=== PATIENT | female | born 1965 | race Caucasian/White ===

== ENCOUNTER → 2022-06-18 10:14 | Outpatient (BNVA) | payer BC, MEDICAID, SELFPAY | PROVIDERS: PCP Nurse Practitioner Family; Visit Provider Nurse Practitioner Family | DX: Z13.220 Encounter for screening for lipoid disorders (principal); Z87.898 Personal history of other specified conditions; Z86.2 Personal history of diseases of the blood and blood-forming organs and certain disorders involving the immune mechanism | CPT/HCPCS: 80053; 80061; 83036; 85025 ==

== ENCOUNTER → 2022-07-01 09:00 | Outpatient (BNVA) | payer BC, MEDICAID, SELFPAY | PROVIDERS: PCP Nurse Practitioner Family; Visit Provider Nurse Practitioner Women's Health | DX: Z01.419 Encounter for gynecological examination (general) (routine) without abnormal findings (principal) | CPT/HCPCS: 87624 ==

== ENCOUNTER → 2022-08-25 15:07 | Outpatient (BNVA) | payer BC, MEDICAID, SELFPAY | PROVIDERS: PCP Family Medicine; Visit Provider Family Medicine | DX: M79.642 Pain in left hand (principal) | CPT/HCPCS: 73130 ==

== ENCOUNTER → 2022-10-08 10:25 | Outpatient (BNVA) | payer BC, MEDICAID, SELFPAY | PROVIDERS: PCP Family Medicine; Visit Provider Family Medicine | DX: E11.9 Type 2 diabetes mellitus without complications (principal) | CPT/HCPCS: 80053; 83036 ==

== ENCOUNTER → 2024-09-28 10:20 | Outpatient (BNVA) | payer BC, MEDICAID, SELFPAY | PROVIDERS: PCP Family Medicine; Visit Provider Family Medicine | DX: I10 Essential (primary) hypertension (principal); E11.9 Type 2 diabetes mellitus without complications | CPT/HCPCS: 80053; 80061; 83036 ==

== ENCOUNTER 2024-10-02 16:55 | Inpatient (IN) | payer BC, MEDICAID, SELFPAY ==
[2024-10-02] VITALS (9 sets, daily range): BP systolic 150–161; BP diastolic 87–99; PULSE 84–100; RESP 14–35; TEMP 37; O2SAT 96–97
--- NOTE | 2024-10-02 17:11 | P.HP_ITS ---
Providers/Chief Complaint Admitting Physician: Lance Escoto MD Primary Care Provider: Teresita Huitron MD Chief Complaint: chest pain, elavated trop, CSU 102 History of Present Illness Ric Garcia is a 58 year old female with past medical history of uncontrolled type 2 diabetes mellitus, hypertension noncompliant with medications because she wanted to try the natural treatment . She is transferred from outside hospital where she presented overnight because of chest pressure. Chest pressure started at around 10 PM last night associated with heaviness in her left shoulder and nausea. She denies any complaints right now. At the outside hospital she was diagnosed of non-ST elevation VT and was started on a heparin drip, given full dose aspirin. Currently when seen in the CSU patient is laying comfortably in bed. Denies any nausea, vomiting, headache or chest pains. Review of Systems General: Reports: 10 or more systems reviewed and unremarkable except in HPI and below Const: Denies: fever(s), chills, body aches, change in appetite, change in weight, malaise, night sweats, diaphoresis, change in sleep pattern, daytime sleepiness or snoring Eyes: Denies: change in vision, blurry vision, photophobia, eye discomfort or eye discharge ENMT: Denies: throat pain, enlarged tonsils, hoarseness, mouth pain, oral sores, dry mouth, tinnitus, nasal congestion or post nasal drip Card: Denies: chest pain, palpitations, irregular heart rhythm, edema, swelling of feet/ankles, lightheadedness, syncope, pre-syncope, dyspnea on exertion, orthopnea, leg pain with exertion or acrocyanosis Resp: Denies: dyspnea, productive cough, non-productive cough, wheezing, stridor, pain on inspiration, change in phlegm color, hemoptysis or chest congestion GI: Denies: abdominal pain, nausea, vomiting, hematemesis, coffee ground emesis, dysphagia, heartburn, diarrhea, constipation, bloating, GI cramping, ch jaxson in bowel habits, pain on defecation, hematochezia or melena : Denies: flank pain, dysuria, urinary frequency, urinary urgency, urinary hesitancy, nocturia or hematuria Musc: Denies: neck pain, back pain, extremity pain, joint pain, joint swelling, joint redness, joint stiffness or limited range of motion Neuro: Denies: headache(s), numbness in extremities, weakness in extremities, sensory changes, lack of coordination, difficulty walking, frequent falls, dizziness, vertigo, confusion, Slurred speech present, difficulty communicating thoughts or seizure-like activity Psych: Denies: anxiety, depression, mood swings, panic attacks, hopelessness or irritability Endo: Denies: polyuria, polydipsia, tired all the time, cold intolerance, excessive sweating, flushing or heat intolerance Eduardo/Lymph: Denies: easy bruising or easy bleeding All/Imm: Denies: tongue swelling, facial swelling or acute wheezing Medications/Allergies Home Medications ?Medication ?Instructions ?Recorded ?Confirmed ?Last Taken ?Type blood sugar diagnostic (Blood #50 ea 09/28/24 09/28/24 Unknown Rx Glucose Test strips) blood-glucose meter (Blood Glucose #1 ea 09/28/2408/23 Unknown Rx Monitoring kit) lancets 33 gauge #100 ea 09/28/24 09/28/24 Un known Rx losartan 25 mg tablet 25 mg PO DAILY 30 days #30 t abs 09/28/24 09/28/24 Unknown Rx metformin 500 mg tablet 500 mg PO DAILY 30 days #30 tabs 09/28/24 09/28/24 Unknown Rx Allergies Allergy/AdvReac Type Severity Reaction Status Date / Time No Known Allergies Allergy Verified 09/28/24 07:53 PFSH Acute PFSH: Medical History (Updated 10/02/24 @ 17:13 by Lance Escoto MD) Non compliance with medical treatment Diabetes Hypertension Surgical History Status post cervical polyp removal History of bilateral tubal ligation Family History Other Medical history unknown Social History Smoking and tobacco/nicotine status: never used tobacco/nicotine Female Reproductive History: Para: 1 Spontaneous abortions: No Date of menopause: 03/29/20 Vitals/I&O/Wt Weight last 48 hrs Weight 46.04 kg Physical Exam Narrative: General: No acute distress, AO x3 HEENT: PERRLA, pupils bilaterally equal and reactive Chest: Normal vesicular breath sounds, no added sounds, equal good air entry bilaterally CVS: S1-S2 regular, no murmurs, no tachycardia, no gallops, no rubs Abdomen: Soft, nontender, no organomegaly, bowel sounds present Neuro: No focal deficits, no facial deformity, AO x3, power 5/5 in all limbs A&P Assessment and plan (1) Non-ST elevation VT (NSTEMI): Denies any active chest pain. Started on heparin drip as an outpatient. Stop heparin drip as it is not as per weight-based protocol. Check troponin cycle, echocardiogram. Appreciate A1c and lipid panel within last 1 week. Aspirin 81 mg daily, atorvastatin 40 mg nightly. Depending on the vitals will plan to start low-dose beta-rocio. N.p.o. after midnight. Lexiscan stress test in AM. If patient develops chest pain we will plan for consulting cardiology for urgent angiogram. Full dose Lovenox 1 mg/kg body weight every 12 hourly as per creatinine clearance. (2) Uncontrolled type 2 diabetes mellitus: Recent A1c of 13.2. Discussed in detail with the patient that she has uncontrolled type 2 diabetes mellitus which puts her at a higher risk of a stroke, VT, severe infections, peripheral artery disease which puts her at a risk of losing her limbs. Discussed given her uncontrolled A1c it will be most important to control her blood sugars at the earliest. Discussed that she should be on an insulin at least for a short while to control her A1c and then may be transition to oral hypoglycemics. For now patient is agreeable. Insulin sliding scale at low-dose protocol. Depending on requirement in next 24 hours we will plan to add Lantus. (3) Hypertension: Goal blood pressure less than 140/90 mmHg. Plan to start on low-dose beta-rocio. Add CAMACHO/ARB within next 24 hours depending on blood pressures. Qualifiers: Hypertension type: primary hypertension Qualified Code(s): I10 - Essential (primary) hypertension (4) Non compliance with medical treatment: Plan Full code Cardiac carb consistent diet, n.p.o. after midnight. Protonix OPD prophylaxis Full dose Lovenox will be sufficient for DVT prophy. PDMP PDMP Reviewed: Not Reviewed Attestations Medical Necessity Statement*: Admission for more than 2 midnights for management of non-ST elevation VT, uncontrolled type 2 diabetes mellitus Diagnoses Non-ST elevation VT (NSTEMI) I21.4 Uncontrolled type 2 diabetes mellitus Primary hypertension I10 Hypertension type: primary hypertension Non compliance with medical treatment Z91.199
--- NOTE | 2024-10-02 17:11 | ECG_ITS ---
[facility] Test Date: 2024-10-02 Pat Name: Ric Garcia Department: Room: 102 Gender: Female Vehicle Sales Professional: : 1965 Requested By: Lance Escoto Order Number: [id number] Reading MD: KORI TERESA Measurements Intervals [place] Rate: 81 P: 0 OK: 0 QRS: 56 QRSD: 86 T: 122 QT: 407 QTc: 473 Interpretive Statements SINUS RHYTHM NONSPECIFIC ST & T-WAVE ABNORMALITY No previous ECG available for comparison Electronically Signed On 10-02-2024 21:43:22 CDT by KORI TERESA [email or web address]
[2024-10-02 17:33] LABS: Basophils # 0.1 10^3/uL (0.0-0.1); Basophils % 0.5 %; Eosinophils # 0.1 10^3/uL (0.0-0.8); Eosinophils % 0.6 %; Hematocrit 40.1 % (36-47); Mean Corpuscular HGB Conc 34.9 g/dL (30-55); Mean Corpuscular Hemoglobin 26.3 pg (27-33); Mean Corpuscular Volume 75.2 fl (85-98); Mean Platelet Volume 10.9 fL (7.4-10.4); Monocytes # 0.4 10^3/uL (0.2-0.9); Monocytes % 4.2 %; Neutrophils # 7.48 10^3/uL (1.8-7.7); Neutrophils % 74.2 %; Nucleated Red Blood Cells % 0 %; Platelet Count 310 10^3/cmm (157-399); Red Blood Count 5.33 10^6/uL (3.85-5.65); Red Cell Distribution Width 11.6 % (12.1-15.1); White Blood Count 10.08 10^3/uL (3.29-11.43)
[2024-10-02 17:35] LABS: Glucose Point of Care 216 mg/dL (70-110)
[2024-10-02] MEDS: insulin lispro 100 unit/1 mL SUBCUT ×2 (17:47→20:58)
[2024-10-02 17:48] LABS: Partial Thromboplastin Time 38.4 SECONDS (23.9-36.7)
[2024-10-02] MEDS: pantoprazole 40 mg SDV IVP (17:48)
[2024-10-02] MEDS: sodium chloride 0.9% 1,000 ML 30 ML IV (17:48)
[2024-10-02 17:54] LABS: Lactic Sepsis W/Reflex 0.9 mmol/L (0.5-2.2)
[2024-10-02 17:58] LABS: Troponin(5th) Baseline 521 ng/L (0-10)
[2024-10-02 18:10] LABS: Procalcitonin 0.03 ng/mL (0-0.5); Thyroid Stimulating Hormone 1.12 uIU/mL (0.27-4.20); Vitamin B12 1737 pg/mL (232-1245)
[2024-10-02 18:21] LABS: Alanine Aminotransferase 18 U/L (0-33); Albumin Level 4.3 g/dL (3.5-5.2); Alkaline Phosphatase 147 U/L (35-105); Anion Gap 16.9 (5-19); Aspartate Amino Transferase 39 U/L (0-32); Blood Urea Nitrogen 9 mg/dL (6-20); Calcium 9.1 mg/dL (8.5-10.5); Carbon Dioxide 21 mmol/L (22-29); Chloride 99 mmol/L (98-107); Globulin 2.4 g/dL (1.3-4.6); Glomerular Filtration Rate 229.3 mL/min (90-130); Glucose 236 mg/dL (65-115); Iron 55 ug/dL (37-145); Osmolality Calculated 282 mOsm/kg (285-295); Percent Saturation 18.7 % (20-50); Potassium 3.9 mmol/L (3.5-5.1); Sodium 133 mmol/L (136-145); Total Bilirubin 0.5 mg/dL (0.15-1.2); Total Iron Binding Capacity 293 mcg/dl; Total Protein 6.7 g/dL (6.6-8.7); Unsaturated Iron Binding 238 ug/dL (112-347)
[2024-10-02] MEDS: enoxaparin 60 mg/0.6 mL Syringe 50 MG SUBCUT (19:24)
[2024-10-02 19:53] LABS: Troponin 5 2HR 554.7 ng/L (0-10); Troponin 5 2HR Delta 33.7 ABS# (0-10)
[2024-10-02 20:44] LABS: Glucose Point of Care 255 mg/dL (70-110)
--- NOTE | 2024-10-02 23:01 | ECG_ITS ---
[facility] Date: 2024-10-03 Pat Name: Ric Garcia Department: Room: [facility] Gender: Female Lead Javascript Engineer: : 1965 Requested By: Lance Escoto Order Number: [id number] Reading MD: Peter Hightower M.D. Measurements Intervals [place] Rate: 89 P: 56 HI: 144 QRS: 57 QRSD: 85 T: 132 QT: 386 QTc: 472 Interpretive Statements SINUS RHYTHM POSSIBLE LEFT ATRIAL ENLARGEMENT [-0.1mV P-WAVE IN V1/V2] NONSPECIFIC T-WAVE ABNORMALITY Compared to ECG 10/02/2024 17:11:09 No significant changes Electronically Signed On 10-08-2024 13:35:30 CDT by Peter Hightower M.D. [email or web address]
[2024-10-02 23:31] LABS: Troponin 5 6HR 846.4 ng/L (0-10); Troponin 5 6HR Delta 325.4 ng/L (0-12)
[2024-10-03] VITALS (10 sets, daily range): BP systolic 113–150; BP diastolic 67–89; PULSE 75–105; RESP 11–21; TEMP 36.7; O2SAT 95–98
--- NOTE | 2024-10-03 02:44 | PC.NURSE ---
Patient refusing medications based on advice from her . Patients wants patient to receive natural treatments instead of medications, due to his concerns for possible side effects. stated he had done lots of research on those medications and that they were no good and many people had problems after taking them . Educated patient and on medications, on patients current health problems, and need for medication compliance to help manage them. still adamant that we only give medications that are related to patients heart, not the other things like blood pressure . Patient refused Losartan, Metoprolol, and Atorvastatin. Lovenox and Insulin given as ordered.
[2024-10-03 04:23] LABS: Basophils % 0.4 %; Eosinophils # 0.1 10^3/uL (0.0-0.8); Eosinophils % 1.1 %; Hematocrit 40.7 % (36-47); Lymphocytes # 1.8 10^3/uL (0.8-4.8); Lymphocytes % 18.1 %; Mean Corpuscular HGB Conc 34.2 g/dL (30-55); Mean Corpuscular Hemoglobin 25.9 pg (27-33); Mean Corpuscular Volume 75.8 fl (85-98); Mean Platelet Volume 11.2 fL (7.4-10.4); Monocytes # 0.5 10^3/uL (0.2-0.9); Monocytes % 5.2 %; Nucleated Red Blood Cells % 0 %; Platelet Count 333 10^3/cmm (157-399); Red Blood Count 5.37 10^6/uL (3.85-5.65); Red Cell Distribution Width 11.7 % (12.1-15.1)
[2024-10-03 04:45] LABS: Alanine Aminotransferase 16 U/L (0-33); Albumin Level 3.9 g/dL (3.5-5.2); Alkaline Phosphatase 133 U/L (35-105); Anion Gap 15.9 (5-19); Aspartate Amino Transferase 32 U/L (0-32); Blood Urea Nitrogen 14 mg/dL (6-20); Calcium 9.1 mg/dL (8.5-10.5); Carbon Dioxide 23 mmol/L (22-29); Chloride 100 mmol/L (98-107); Globulin 3.1 g/dL (1.3-4.6); Glomerular Filtration Rate 164.5 mL/min (90-130); Glucose 294 mg/dL (65-115); Magnesium 1.9 mg/dL (1.7-2.3); Osmolality Calculated 291 mOsm/kg (285-295); Phosphorus 3.2 mg/dL (2.5-4.5); Potassium 3.9 mmol/L (3.5-5.1); Sodium 135 mmol/L (136-145); Total Bilirubin 0.4 mg/dL (0.15-1.2)
[2024-10-03 04:46] LABS: Procalcitonin 0.02 ng/mL (0-0.5)
[2024-10-03 06:05] LABS: Folate Level 17.7 ng/mL (4.8-37.3)
[2024-10-03 06:23] LABS: Glucose Point of Care 238 mg/dL (70-110)
[2024-10-03] MEDS: insulin lispro 100 unit/1 mL SUBCUT ×3 (08:25→22:03)
[2024-10-03] MEDS: losartan 50 mg Tablet 25 MG PO (08:26)
[2024-10-03] MEDS: aspirin 81 mg EC Tablet PO (08:26)
[2024-10-03] MEDS: docusate sodium 100 mg Capsule PO ×2 (08:26→17:19)
[2024-10-03] MEDS: metoprolol tartrate 25 mg Tablet PO (08:27)
--- NOTE | 2024-10-03 09:39 | XACV_ITS ---
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 * Left Main has no disease. * Left Anterior Descending has no disease. * Mid Circumflex: severe 90% stenosis, THOMAS: 3 flow. * 1st Diagonal: severe 90% stenosis, THOMAS: 3 flow. * First Obtuse Marginal Branch Segment: luminal irregularities 20% stenosis, THMOAS: 3 flow. * Coronary angiography shows right dominance. PCI Status: Urgent Interventional Findings * Mid Circumflex: 90% stenosis treated with a AB MINI TREK 2.00X15 RX BALLOON, ANNA Burton TRAV 2.75X18 ALEJANDRA, and MDAlireza GUEVARA EUPHORA RX 3.42Z78HX BALLOON. 0% residual stenosis, THOMAS: 3 flow. * 1st Diagonal: 90% stenosis treated with a AB MINI TREK 2.00X12 RX BALLOON, ANNA Burton TRAV 2.0X15 ALEJANDRA, and MDAlireza GUEVARA EUPHORA RX 2.85A05EY BALLOON. 0% residual stenosis, THOMAS: 3 flow. * First Obtuse Marginal Branch Segment: 20% stenosis treated with a AB TREK 3.00X08 RX BALLOON. 0% residual stenosis, THOMAS: 3 flow. Conclusions 1. Mid Circumflex was treated with a Balloon, Drug Eluting Stent, and Balloon. 2. 1st Diagonal was treated with a Balloon, Drug Eluting Stent, and Balloon. 3. First Obtuse Marginal Branch Segment was treated with a Balloon. 4. There is severe coronary artery disease with one vessel disease. Recommendations * 1-Return to inpatient for close monitoring and routine cath care 2-Risk factor modification for secondary prevention 3-Statin and aspirin 81 mg life-long, if tolerated 4-Patient was pre-loaded with 600 mg of Plavix, continue Plavix 75mg p.o. daily for at least one year. We will assess at the end of one year again to continue if further or not 5-Continue optimal medical management 6-Follow up with Dr. Zee in four weeks and your primary care in 10 days. Diagnostic RX Recommendation: PCI w/o planned CABG Pressures Phase:Rest AO : 142 / 92 ( 114 ) @ 12:13:00 PM 106 / 80 ( 93 ) @ 12:16:00 PM 105 / 79 ( 93 ) @ 12:27:00 PM 129 / 87 ( 102 ) @ 12:38:00 PM 106 / 69 ( 86 ) @ 12:59:00 PM 115 / 73 ( 92 ) @ 1:08:00 PM 82 / 54 ( 66 ) @ 1:16:00 PM Clinical Evaluation EBL: 5mL-10mL Procedural Details Procedure Consent Obtained. Pre-Procedure Time Out. Identified patient by full name and date of as verbalized by the patient/guarantor. Does the consent match the physician's order: Yes. Accurate & Complete Informed Consent: Yes. Inpatient/Outpatient History & Physical on Chart: Yes. If H&P is completed, is and addenduem needed: No. Visualize and Verify Site with Patient/Guarantor: N/A. Relevant Radiology Images available: Yes. The risks, benefits, and alternatives of sedation and/or procedure were discussed by physician. The patient agrees to continue. Procedure started. [facility] Clinical Fraility Score: 3: Managing Well. Director Federal Indications: ACS > 24 hours/NSTEMI. Chest Pain Symptom Assessment: Typical Angina Symptoms. Cardiovascular Instability: No. Correct patient, site and procedure confirmed by cath team. Current diagnosis: NSTEMI. PERRLA. Strong, equal hand bale stacker bilaterally. Lungs clear x 5 lobes. IV Site on Arrival: 18 gauge in the right anticubital. IV Site on Arrival: 18 gauge in the left anticubital. IV Fluids: 0.9% NaCl at KVO. 400 mL infused prior to medical laboratory technical officer. Pre Procedural Pulses: bilateral radial was 3+. Oxygen started at 2liters/min via nasal canula. right groin was prepped with chloroprep then draped in the usual sterile fashion. right radial was prepped with chloroprep then draped in the usual sterile fashion. Physician notified. Baseline sample Acquired. HR: 81 BPM. Patient's family in the medical laboratory technical officer waiting room. Dr. Zee will update at the completion of the procedure. Equipment: 6F - Radial. Cardiac Cath Pack. ACIST Manifold Kit Model BT 2000. Heparinized Saline (2 units/mL), 1000 mL bag. Physician arrived. Physician scrubbed in. Immediate Pre-Procedure Time Out. Correct Patient: Yes; Correct Procedure: Yes; Correct Site: Yes; Correct Patient Position: Yes; Correct Supplies: Yes; Dried Flammable Prep: Yes; Blood Products Available: Yes;. Lidocaine 1% infiltrated to the right radial. Arterial access obtained. A 5 czech TIG catheter in over the exchange J wire. Multiple views taken of left coronary artery. Catheter redirected to the RCA. Unable to cannulate with TIG catheter. Catheter removed over the exchange J wire. A 5 czech 3DRC catheter in over the exchange J wire. Catheter removed over the exchangeJ wire. A 5 czech TIG catheter in over the exchange J wire. Cine of the RCA performed. Catheter removed over the exchange J wire. A 5 czech JR4 catheter in over the exchange J wire. Multiple views taken of right coronary artery. Catheter removed over the exchange J wire. ACT drawn. Results 275 seconds. Therapeutic limits - pre-heparin administration 90-150 seconds and monitoring heparin during a vascular procedure >250 seconds. 6 czech XB 3 guide catheter was inserted over the exchange J wire. Runthrough guidewire was advanced through the guide catheter to lesion in the mid Circ. Diane Brown RN, in to scrub for RT Jeanette(R). Inflation number : 1 A AB MINI TREK 2.00X15 RX BALLOON was prepped and advanced across the Mid CX , then inflated to 14 SHEEBA for 0:12 seconds. Balloon out. Inflation Number : 2 A MDT R TRAV 2.75X18 ALEJANDRA -Lot Number# [id number] was prepped and advanced across the Mid CX. The stent was deployed at 12 SHEEBA for 0:20 seconds. Exp. . Stent balloon out over wire. Inflation number : 3 A MDT NC EUPHORA RX 3.41L88DM BALLOON was prepped and advanced across the Mid CX , then inflated to 12 SHEEBA for 0:22 seconds. Inflation number: 4 The MDT NC EUPHORA RX 3.76O54GM BALLOON was reinflated across the Mid CX, to 14 SHEEBA for 0:24 seconds. Balloon out. Results checked. Runthrough guidewire redirected to the OM. Inflation number : 1 A AB TREK 3.00X08 RX BALLOON was prepped and advanced across the 1st Ob Mitra , then inflated to 4 SHEEBA for 0:18 seconds. Inflation number: 2 The AB TREK 3.00X08 RX BALLOON was reinflated across the 1st Ob Mitra, to 6 SHEEBA for 0:13 seconds. Inflation number: 3 The AB TREK 3.00X08 RX BALLOON was reinflated across the 1st Ob Mitra, to 6 SHEEBA for 0:13 seconds. Inflation number: 4 The AB TREK 3.00X08 RX BALLOON was reinflated across the 1st Ob Mitra, to 4 SHEEBA for 0:11 seconds. Balloon out. Results checked. Runthrough guidewire redirected to the Diagonal. Inflation number : 1 A AB MINI TREK 2.00X12 RX BALLOON was prepped and advanced across the 1st Diag , then inflated to 12 SHEEBA for 0:17 seconds. Inflation number: 2 The AB MINI TREK 2.00X12 RX BALLOON was reinflated across the 1st Diag, to 14 SHEEBA for 0:21 seconds. Inflation number: 3 The AB MINI TREK 2.00X12 RX BALLOON was reinflated across the 1st Diag, to 12 SHEEBA for 0:12 seconds. Results checked. Balloon out. Inflation Number : 4 A MDT R TRAV 2.0X15 ALEJANDRA -Lot Number# [id number] was prepped and advanced across the 1st Diag. The stent was deployed at 14 SHEEBA for 0:27 seconds.Exp. . Stent balloon out over wire. Inflation number : 5 A MDT NC EUPHORA RX 2.29L87OI BALLOON was prepped and advanced across the 1st Diag , then inflated to 12 SHEEBA for 0:20 seconds. Inflation number: 6 The MDT NC EUPHORA RX 2.30J33JG BALLOON was reinflated across the 1st Diag, to 12 SHEEBA for 0:16 seconds. Inflation number: 7 The MDT NC EUPHORA RX 2.21K31SA BALLOON was reinflated across the 1st Diag, to 14 SHEEBA for 0:16 seconds. Balloon out. Results checked. Wire out. ACT drawn. Results 400 seconds. Therapeutic limits - pre-heparin administration 90-150 seconds and monitoring heparin during a vascular procedure >250 seconds. Guide catheter out over the exchange J wire. Results checked. Physician scrubbed out. A TR Band was successful obtaining hemostatsis at the Right Radial artery insertion site. Post Procedure: Pulses reassessed and unchanged. PERRLA. Strong, equal hand bale stacker bilaterally. No VTE prophylaxis required. Medication's Wasted: Lidocaine 1% = 18 mL. Medication's Wasted: Nitro = 49.8 mg. Medication's Wasted: Heparin = 4000 units mg. The patients spouse left the hospital and is not available for an update. Medication's Wasted: Other = Fentanyl 50 mcg. Total IV fluids: 120 mL. PCI Indication: CAD (without ischemic symptoms). Post-op diagnosis: ALEJANDRA x 1 to the Mid CX, POBA of the 1st OM, ALEJANDRA x 1 to the Diagonal. Complications: none. Estimated blood loss: 5mL-10mL. Responsiveness - Normal response to verbal stimuli; alert and oriented, PERRLA. Airway - Unaffected, no intervention required; spontaneous ventilation. Circulation: W/N/L, pulses unchanged. Nausea/Vomiting: No. Procedure completed. Patient transferred by bed to CPRU. Vital chart was stopped. Access Site Site: Right Radial artery Sheath Size: 6 Fr Hemostasis Method: TR Band Hemostasis Success: Successful Procedure Medications Start: 11:05 AM Stop: 11:05 AM Medication: Versed Amount: 1 mg Route: I.V. Start: 11:05 AM Stop: 11:05 AM Medication: Fentanyl Amount: 50 mcg Route: I.V. Start: 11:12 AM Stop: 11:12 AM Medication: Nitrogylcerin Amount: 200 mcg Route: I.A. Start: 11:14 AM Stop: 11:14 AM Medication: Heparin Amount: 5000 units Route: I.V. Start: 11:42 AM Stop: 11:42 AM Medication: Heparin Amount: 2000 units Route: I.V. Start: 12:08 PM Stop: 12:08 PM Medication: Versed Amount: 1 mg Route: I.V. Start: 12:15 PM Stop: 12:15 PM Medication: Nitrogylcerin Amount: 200 mcg Route: I.C. Start: 12:25 PM Stop: 12:25 PM Medication: Plavix Amount: 600 mg Route: P.O. I, the attending physician, have reviewed and verified all procedure medications. Yes, all medications given per verbal order History/Risk Factors Hypertension: Yes Dyslipidemia: No Peripheral Arterial Disease (PAD): No Myocardial Infarction ([place]): No Obesity: No Renal Disease: No Tobacco Use: Never Prior Interventions PCI: No CABG: No Valve Surgery: No Report Signatures Interventional Workflow Finalized by Alex Zee MD on 10/18/2024 09:21 PM Diagnostic Workflow Finalized by Alex Zee MD on 10/18/2024 09:21 PM
[2024-10-03] MEDS: sodium chloride 0.9% 1,000 ML 50 ML IV (10:33)
[2024-10-03] MEDS: diphenhydrAMINE 50 mg Capsule PO (10:33)
--- NOTE | 2024-10-03 10:45 | P.CONIM_ITS ---
<Statement entered by Alex Zee MD - 10/04/24 20:30> Patient was evaluated and cared for in conjunction with an advanced practice practitioner. I personally examined the patient and reviewed the chart and all pertinent data including imaging, telemetry, and laboratory results. I discussed the patient in detail with the advanced practice practitioner. Please see their note for complete H&P testing result and agreed upon plan of care for the patient. 58-year-old female presented with chest pain ruled in for non-ST elevation [place] Currently stable GENERAL: Patient is alert, awake and oriented x3. HEART: Regular S1 and S2. No murmur, rub or gallop. LUNGS: Clear to auscultate bilaterally. CENTRAL NERVOUS SYSTEM: Grossly nonfocal. EXTREMITIES: Lower extremities with out edema bilaterally. Assessment and plan Non-ST ovation [place] Hypertension Hyperlipidemia Continue aspirin and statin beta-rocio and heparin Proceed with left heart cath Providers/Reason For Consult 2 Consulting Physician/Specialty*: Alex Zee MD Reason for Consult*: Chest pain, NSTEMI Requesting Physician: Dr. Escoto Attending Physician: José Lee Primary Care Provider: Teresita Huitron MD History of Present Illness History of Present Illness Ric Garcia is a 58 year old female with a past medical history of uncontrolled type 2 diabetes, hypertension, was transferred from another hospital due to chest pressure. Apparently the patient had chest pressure that started around 10 PM a couple days ago. This was associated with left shoulder pain and nausea. She denies any chest pain at this time. She does not take medication because she states she would rather try a natural treatment. She was started on heparin drip and given full dose aspirin. Her initial troponin was greater than 500. Trop was [phone]. EKG showed sinus rhythm with nonspecific ST and T wave abnormalities. VSS. She just had an echo performed. She is currently taking Metoprolol tartrate 25 BID, atorvastatin, losartan, and aspirin. She has received 2 doses of Lovenox. Review of Systems 2 Narrative: Consitutional: denies fever, chills, body aches, or changes in appetite, denies abnormal weight loss Eyes: Denies changes in vision Card: Denies chest pain, palpitations, irregular heart rhythm, edema, syncope, shortness of breath, orthopnea, leg pain with exertion Resp: Denies shortness of breath, denies hemoptysis, denies cough GI: denies abdominal pain, denies nausea or voimting, denies blood in stool : denies blood in urine, denies dysuria Musc: Denies extremity pain, denies limited range of motion or recent injury Skin: Denies rash, lesions, or wounds, denies changes to skin color Neuro: Denies nubmness in extremities, h/a, s/s of stroke Medications/Allergies Home Medications ?Medication ?Instructions ?Recorded ?Confirmed ?Last Taken ?Type blood sugar diagnostic (Blood #50 ea 09/28/24 10/02/24 Unknown Rx Glucose Test strips) blood-glucose meter (Blood Glucose #1 ea 09/28/2412/21 Unknown Rx Monitoring kit) lancets 33 gauge #100 ea 09/28/24 10/02/24 Un known Rx losartan 25 mg tablet 25 mg PO DAILY 30 days #30 t abs 09/28/24 10/02/24 10/01/24 Rx 0800 metformin 500 mg tablet 500 mg PO DAILY 30 days #30 tabs 09/28/24 10/02/24 10/01/24 08:00 Rx Allergies Allergy/AdvReac Type Severity Reaction Status Date / Time No Known Allergies Allergy Verified 09/28/24 07:53 Current Medications Generic Name Dose Route Start Last Admin Trade Name Yvanq PRN Reason Stop Dose Admin Aspirin 81 mg 10/03/24 09:00 10/03/24 08:26 Aspirin 81 Mg Ec Tablet PO 81 mg DAILY KYARA Administration Atorvastatin Calcium 40 mg 10/02/24 21:00 10/02/24 22:11 Atorvastatin 40 Mg Tablet PO Not Given BEDTIME KYARA Docusate Sodium 100 mg 10/02/24 18:00 10/03/24 08:26 Docusate Sodium 100 Mg Capsule PO 100 mg BID KYARA Administration Sodium Chloride 1,000 mls @ 30 mls/hr 10/02/24 17:30 10/03/24 10:32 Sodium Chloride 0.9% IV 0 mls/hr .Q24H KYARA Infusion Sodium Chloride 1,000 mls @ 50 mls/hr 10/03/24 10:01 10/03/24 10:33 Sodium Chloride 0.9% IV 10/04/24 06:00 50 mls/hr .Q20H ONE Administration Insulin Human Lispro 0 unit 10/02/24 18:00 10/03/24 08:25 Insulin Lispro 100 Unit/1 Ml SUBCUT 6 unit WM&BEDTIME KYARA Administration Protocol Losartan Potassium 25 mg 10/02/24 18:25 10/03/24 08:26 Losartan 50 Mg Tablet PO 25 mg DAILY KYARA Administration Metoprolol Tartrate 25 mg 10/02/24 21:00 10/03/24 08:27 Metoprolol Tartrate 25 Mg Tablet PO 25 mg BID@0900,2100 KYARA Administration Pantoprazole Sodium 40 mg 10/02/24 17:00 10/02/24 17:48 Pantoprazole 40 Mg Sdv IVP 40 mg Q24H KYARA Administration PFSH Acute 2 PFSH: Medical History Non compliance with medical treatment Diabetes Hypertension Surgical History Status post cervical polyp removal History of bilateral tubal ligation Family History Other Medical history unknown Social History Smoking and tobacco/nicotine status: never used tobacco/nicotine Female Reproductive History: Para: 1 Spontaneous abortions: No Date of menopause: 03/29/20 Vitals/I&O/Wt Last Vital Signs Temp 98.0 F 10/03/24 07:42 Pulse 88 10/03/24 07:42 Resp 21 H 10/03/24 07:42 BP 135/89 10/03/24 07:42 Pulse Ox 97 10/03/24 07:42 O2 Del Method Room Air 10/03/24 07:42 10/02/24 10/03/24 10/03/24 22:59 06:59 14:59 Intake Total 120 / 120 502 / 502 Balance 120 / 120 502 / 502 Weight last 48 hrs Weight 101 lb 4 oz Weight 101 lb 8 oz Weight 101 lb 8 oz Physical Exam 2 Narrative: General: No apparent distress, healthy appearing, well nourished HENMT: normoceophalic Eye: PERRL Muskuloskeletal: Full ROM Respiratory: Normal respiratory effort, clear to auscultation bilaterally throughout all lung carrera, no use of accessory muscles Cardio: No JVD, regular rate, regular rhythm, S1 S2 normal, no murmurs, peripheral pulses 2+ radial palpated bilaterally GI: Normal to inspection, nondistended Extremities: Full ROM, normal, normal capillary refill, no cyanosis or edema Neuro: Alert and oriented x4, no focal motor deficits Psych: Affect normal, denies suicidal ideation, mental status grossly normal Skin: No rashes or lesions noted, no wounds Data 10/03/24 03:44 10/03/24 03:44 Micro: Microbiology 10/02/24 19:21 Blood Culture - Preliminary Blood SPECIMEN COLLECTED 10/02/24 19:18 Blood Culture - Preliminary Blood SPECIMEN COLLECTED A&P Assessment and plan (1) Non-ST elevation [place] (NSTEMI): (2) Hypertension: Qualifiers: Hypertension type: primary hypertension Qualified Code(s): I10 - Essential (primary) hypertension (3) Diabetes: Qualifiers: Diabetes mellitus type: type 2 Diabetes mellitus moth exterminator insulin use: without moth exterminator use Diabetes mellitus complication status: without complication Qualified Code(s): E11.9 - Type 2 diabetes mellitus without complications (4) Uncontrolled type 2 diabetes mellitus: Plan At this time, patient has NSTEMI. She is not having chest pain at this time. Patient most likely has underlying coronary disease given chest pain, elevated trop, and uncontrolled diabetes with hypertension history. We recommend proceeding with [facility] possible PCI. We have discussed this with the patient and is present. She agrees to proceed. Will plan on performing her procedure today around 1100. Recommend continue aspirin, statin, and beta rocio. Thank you, Dr. Lea, for allowing us to care for this very pleasant 58 year old female. PDMP PDMP Reviewed: Not Reviewed Coding Level of Care Code Acute Code for [facility] Fwd Diagnoses Non-ST elevation [place] (NSTEMI) I21.4 Primary hypertension I10 Hypertension type: primary hypertension Type 2 diabetes mellitus without complication, without long-term current use of insulin E11.9 Diabetes mellitus type: type 2 Diabetes mellitus moth exterminator insulin use: without skilled nursing use Diabetes mellitus complication status: without complication Uncontrolled type 2 diabetes mellitus
--- NOTE | 2024-10-03 10:48 | PC.NURSE ---
Patient left for roving tester laboratory at 1045.
--- NOTE | 2024-10-03 10:56 | W.PM.OPSUD ---
Surgery/Procedure H&P Update DATE OF PROCEDURE: October 03, 2024 DATE H&P PERFORMED: 10/03/24 H&P UPDATE INFORMATION: I have reviewed H&P completed within last 30 days, I have examined patient prior to procedure and No changes to prior documentation PREOP DIAGNOSIS: Non-STEMI PLANNED PROCEDURE: Operation Date: 10/03/24 11:30 Proposed Procedures p Cardiac Catheterization(Left) - Alex Zee MD PATIENT REASSESSED PRIOR TO SEDATION, WITH NO CHANGE NOTED: Yes PHYSICAL EXAM: alert, oriented x 3, clear to auscultation bilaterally, regular rate & rhythm and operative site marked AIRWAY EVAL/ANESTHESIA PLAN: ASA II, Risks, benefits & alternatives of sedation and/or procedure discussed and Patient agrees to continue as planned ADDITIONAL INFORMATION: Patient has been explained all risk-benefit and alternative for the procedure. Patient understand 2% risk of stroke major bleed, patient understands 5% risk of minor bleeding oozing infection hematoma contrast induced nephropathy urgent emergent vascular or bypass surgery. Patient agreed and would like to proceed with it.
--- NOTE | 2024-10-03 12:27 | P.PCN_ITS ---
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, it has luminal irregularities without significant stenosis Intervention: Drug-eluting stent to mid circumflex and drug-eluting stent to diagonal 1 with excellent angiographic result and THOMAS-3 flow, both lesion with pre and postdilated with balloon Successful balloon angioplasty of mid and ostial obtuse marginal 1 with excellent angiographic result 70% lesion were reduced to 20% Complication none Plan Continue aspirin and statin and clopidogrel patient has been loaded with 60 mg of clopidogrel TR band in place, TR band will be off as per protocol Echocardiogram pending Add beta-rocio over next 24 hours IV fluid 100 mL/h for next 10 hours Coding Level of Care Code Acute Code for [facility]
--- NOTE | 2024-10-03 13:40 | PC.NURSE ---
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
[2024-10-03] MEDS: sodium chloride 0.9% 1,000 ML 100 ML IV (13:46)
[2024-10-03 16:38] LABS: Glucose Point of Care 284 mg/dL (70-110)
--- NOTE | 2024-10-03 16:57 | USCV_ITS ---
Ric Garcia Age: 58 Gender: F : 1965 Exam Date: 10/03/2024 07:54 Ordering Phys: Lance Escoto MD Technologist: [place] [facility] [place]: ch nstemi BP: 132 / 74 HR: 84 Rhythm: Sinus Technical Quality: Adequate MEASUREMENTS (Male / Female) Normal Values 2D ECHO LV Diastolic Diameter PLAX 3.7 cm 4.2 - 5.9 / 3.9 - 5.3 cm IVS Diastolic Thickness 1.2 cm 0.6 - 1.0 / 0.6 - 0.9 cm IVS Systolic Thickness 1.5 cm LVPW Diastolic Thickness 0.9 cm 0.6 - 1.0 / 0.6 - 0.9 cm LVPW Systolic Thickness 1.5 cm LVOT Diameter 2.0 cm LV Ejection Fraction 2D Teich 66.2 % LV Ejection Fraction MOD 4C 74.5 % LV Ejection Fraction MOD 2C 75.2 % LV Ejection Fraction 2C AL 75.1 % LA Diameter 2.9 cm RA Systolic Volume 4C AL 14.8 ml RA Systolic Volume 4C MOD 14.4 ml Aorta at Sinotubular Diameter 2.6 cm IVC Diameter 1.3 cm M-MODE LA Ao Ratio MM 1.1 AV Cusp Separation MM 2.2 cm DOPPLER AV Peak Velocity 107.0 cm/s LVOT Peak Velocity 65.0 cm/s AV Area Cont Eq vti 2.0 cm squared AV Area Cont Eq pk 2.0 cm squared MV Peak Velocity 99.0 cm/s MV Area PHT 4.2 cm squared Mitral E to A Ratio 0.9 TR Peak Velocity 194.0 cm/s TR Peak Gradient 15.1 mmHg TV Peak E Velocity 69.0 cm/s PV Peak Velocity 95.0 cm/s FINDINGS Left Ventricle Normal left ventricular size and systolic function, EF 66%. No regional wall motion abnormalities. Mild left ventricular hypertrophy. Grade I/IV diastolic dysfunction (abnormal relaxation filling pattern), normal to mildly elevated filling pressures. Right Ventricle The right ventricle is normal in size and function. Right Atrium The right atrium is normal in size. Left Atrium The left atrium is normal in size. Mitral Valve No gross abnormalities noted Aortic Valve No gross abnormalities noted Tricuspid Valve Mild tricuspid valve regurgitation. Pulmonic Valve No gross abnormalities noted Pericardium Normal pericardium without effusion. Aorta Normal aortic annulus size. IVC Normal inferior vena cava. CONCLUSIONS Normal left ventricular size and systolic function, EF 66%. No regional wall motion abnormalities. Mild left ventricular hypertrophy. Grade I/IV diastolic dysfunction (abnormal relaxation filling pattern), normal to mildly elevated filling pressures. Mild tricuspid valve regurgitation. There is no pericardial effusion. There are no intracardiac masses. No similar previous studies are available for comparison Dr Peter Hightower MD FAC (Electronically Signed) Final Date: 03 October 2024 22:57 S
[2024-10-03] MEDS: pantoprazole 40 mg SDV IVP (17:19)
--- NOTE | 2024-10-03 18:03 | PC.NURSE ---
Nursing has been removing air slowly out of patient's TR-Band, 2 ml's at a time. Nursing entered patient's room at 1715 and TR-band is still on and is bleeding. 5 ml's of air is put back into the TR-band. Patient is reeducated to not use her right hand/wrist. Patient states understanding.
--- NOTE | 2024-10-03 19:48 | P.PN_ITS ---
Subjective 2 Subjective: Without chest pain or pressure this morning. Awaiting additional assessment with cardiology by coronary angiogram. Vitals/I&O/Wt Last Vital Signs Temp 98.0 F 10/03/24 07:42 Pulse 105 H 10/03/24 19:08 Resp 16 10/03/24 19:08 BP 125/75 10/03/24 19:08 Pulse Ox 98 10/03/24 19:08 O2 Del Method Room Air 10/03/24 19:08 10/03/24 10/03/24 10/03/24 06:59 14:59 22:59 Intake Total 862 / 862 120 / 982 Balance 862 / 862 120 / 982 Weight last 48 hrs Weight 45.926 kg Weight 46.04 kg Weight 46.04 kg Physical Exam 2 Narrative: Accompanied by her . Const: COMMON NORMALS: patient oriented x3 and alert GENERAL APPEARANCE: c ooperative ORIENTATION/CONSCIOUSNESS: Yes awake HENMT: COMMON NORMALS: oropharynx normal Neck/C-Spine: COMMON NORMALS: no JVD Resp: COMMON NORMALS: normal respiratory effort and clear to auscultation bilaterally AUSCULTATION: clear to auscultation bilaterally Cardio: COMMON NORMALS: no JVD, regular rhythm, S1 normal heart sound present, S2 normal heart sound present and No murmurs present (Cardio) RHYTHM: regular rhythm HEART SOUNDS: S1 normal heart sound present and S2 normal heart sound present GI: COMMON NORMALS: Normal to inspection, nondistended, normoactive bowel sounds present, Soft to palpation and non-tender PALPATION: Yes Soft to palpation Extremity: COMMON NORMALS: no joint enlargement and no pedal edema Neuro: COMMON NORMALS: patient oriented x3 and moves all extremities S ENSORIUM/ORIENTATION: Yes alert Skin: COMMON NORMALS: no rashes or lesions noted GENERAL SKIN EXAM: no rashes or lesions noted Data 10/03/24 03:44 10/03/24 03:44 Micro: Microbiology 10/02/24 19:21 Blood Culture - Preliminary Blood NEGATIVE TO DATE 10/02/24 19:18 Blood Culture - Preliminary Blood NEGATIVE TO DATE A&P Assessment and plan (1) Non-ST elevation [place] (NSTEMI): Status post coronary angiography and intervention on LCx as well as diagonal branch with stents placed, as well as balloon angioplasty of OM. Continue postintervention care. Monitor in telemetry with risk of reperfusion injury, arrhythmia. Continue dual antiplatelet therapy, prasugrel was considered by cardiology, per discussion with cardiology continue aspirin and Plavix due to more favorable risk profile. Reviewed vitals, CBC, BMP, cardiology note, echocardiogram is pending. (2) Uncontrolled type 2 diabetes mellitus: Reviewed POC glucose. Would benefit from further optimization. Without close so far. Will add insulin Lantus. Recent A1c of 13.2. Discussed in detail with the patient that she has uncontrolled type 2 diabetes mellitus which puts her at a higher risk of a stroke, NE, severe infections, peripheral artery disease which puts her at a risk of losing her limbs. Discussed given her uncontrolled A1c it will be most important to control her blood sugars at the earliest. Discussed that she should be on an insulin at least for a short while to control her A1c and then may be transition to oral hypoglycemics. For now patient is agreeable. Insulin sliding scale at low-dose protocol. Depending on requirement in next 24 hours we will plan to add Lantus. (3) Hypertension: Goal blood pressure less than 140/90 mmHg. Blood pressures are close to target. Reassess. Qualifiers: Hypertension type: primary hypertension Qualified Code(s): I10 - Essential (primary) hypertension (4) Non compliance with medical treatment: Plan Full code Cardiac carb consistent diet, Protonix OPD prophylaxis Full dose Lovenox will be sufficient for DVT prophy. PDMP PDMP Reviewed: Not Reviewed Attestations 2 Medical Necessity Statement*: Continue admission for assessment management following NSTEMI, PCI. and High MDM includes amount and/or complexity of data reviewed/ordered [ previous or external records, resulted lab(s)/test(s), ordered lab(s)/test(s) and other healthcare professional discussion] and described risk of complication, morbidity or mortality of management as documented Diagnoses Non-ST elevation NE (NSTEMI) I21.4 Uncontrolled type 2 diabetes mellitus Primary hypertension I10 Hypertension type: primary hypertension Non compliance with medical treatment Z91.199
[2024-10-03 20:47] LABS: Glucose Point of Care 218 mg/dL (70-110)
[2024-10-03] MEDS: insulin glargine 100 units/1 mL 10 UNIT SUBCUT (22:03)
[2024-10-04] VITALS (7 sets, daily range): BP systolic 121–141; BP diastolic 61–85; PULSE 19–95; RESP 15–20; TEMP 36.4–36.9; O2SAT 97–98
[2024-10-04 03:12] LABS: Basophils # 0.1 10^3/uL (0.0-0.1); Basophils % 0.6 %; Eosinophils # 0.1 10^3/uL (0.0-0.8); Eosinophils % 1.6 %; Hematocrit 39.9 % (36-47); Lymphocytes # 1.6 10^3/uL (0.8-4.8); Mean Corpuscular HGB Conc 33.6 g/dL (30-55); Mean Corpuscular Hemoglobin 25.9 pg (27-33); Mean Platelet Volume 10.8 fL (7.4-10.4); Monocytes # 0.5 10^3/uL (0.2-0.9); Monocytes % 5.7 %; Neutrophils # 5.93 10^3/uL (1.8-7.7); Neutrophils % 72.9 %; Nucleated Red Blood Cells % 0 %; Platelet Count 307 10^3/cmm (157-399); Red Blood Count 5.18 10^6/uL (3.85-5.65); Red Cell Distribution Width 11.7 % (12.1-15.1); White Blood Count 8.14 10^3/uL (3.29-11.43)
[2024-10-04 03:30] LABS: Anion Gap 14.7 (5-19); Aspartate Amino Transferase 15 U/L (0-32); Blood Urea Nitrogen 9 mg/dL (6-20); Calcium 8.9 mg/dL (8.5-10.5); Carbon Dioxide 23 mmol/L (22-29); Chloride 103 mmol/L (98-107); Creatinine Clr Calc Pharmacy 112.5028; Glomerular Filtration Rate 164.5 mL/min (90-130); Magnesium 1.9 mg/dL (1.7-2.3); Potassium 3.7 mmol/L (3.5-5.1); Sodium 137 mmol/L (136-145); Total Bilirubin 0.4 mg/dL (0.15-1.2); Total Protein 6.8 g/dL (6.6-8.7)
[2024-10-04 03:51] LABS: Alanine Aminotransferase 13 U/L (0-33); Albumin Level 3.7 g/dL (3.5-5.2); Alkaline Phosphatase 131 U/L (35-105); Globulin 3.1 g/dL (1.3-4.6); Glucose 306 mg/dL (65-115); Osmolality Calculated 294 mOsm/kg (285-295); Phosphorus 3.3 mg/dL (2.5-4.5)
[2024-10-04 06:07] LABS: Glucose Point of Care 357 mg/dL (70-110)
[2024-10-04] MEDS: losartan 50 mg Tablet 25 MG PO (08:44)
[2024-10-04] MEDS: clopidogrel 75 mg Tablet PO (08:45)
[2024-10-04] MEDS: docusate sodium 100 mg Capsule PO (08:45)
[2024-10-04] MEDS: aspirin 81 mg EC Tablet PO (08:45)
[2024-10-04] MEDS: metoprolol tartrate 25 mg Tablet PO (08:45)
[2024-10-04] MEDS: insulin lispro 100 unit/1 mL SUBCUT (08:45)
[2024-10-04 11:23] LABS: Glucose Point of Care 143 mg/dL (70-110)
--- NOTE | 2024-10-04 14:01 | PM.PN ---
Subjective Subjective: Patient received drug-eluting stent to the mid circumflex, first diagonal, and balloon angioplasty to the OM. Creatinine is normal at 0.4. At this time she is having no chest pain or shortness of breath. Cath site looks good Vitals/I&O/Wt Last Vital Signs Temp 98.0 F 10/04/24 11:31 Pulse 86 10/04/24 11:31 Resp 18 10/04/24 11:31 BP 121/63 10/04/24 11:31 Pulse Ox 97 10/04/24 11:31 O2 Del Method Room Air 10/04/24 11:31 10/03/24 10/04/24 10/04/24 22:59 06:59 14:59 Intake Total 1520 / 2382 1360 / 3742 120 / 120 Balance 1520 / 2382 1360 / 3742 120 / 120 Weight last 48 hrs Weight 105 lb 12.8 oz Weight 105 lb 8 oz Weight 101 lb 4 oz Weight 101 lb 8 oz Weight 101 lb 8 oz Physical Exam Narrative: General: No apparent distress, healthy appearing, well nourished HENMT: normoceophalic Eye: PERRL Muskuloskeletal: Full ROM Respiratory: Normal respiratory effort, clear to auscultation bilaterally throughout all lung carrera, no use of accessory muscles Cardio: No JVD, regular rate, regular rhythm, S1 S2 normal, no murmurs, peripheral pulses 2+ radial palpated bilaterally GI: Normal to inspection, nondistended Extremities: Full ROM, normal, normal capillary refill, no cyanosis or edema Neuro: Alert and oriented x4, no focal motor deficits Psych: Affect normal, denies suicidal ideation, mental status grossly normal Skin: radial cath site clean, dry, intact w/o hematoma Data 10/04/24 02:47 10/04/24 02:47 Micro: Microbiology 10/02/24 19:21 Blood Culture - Preliminary Blood NEGATIVE TO DATE 10/02/24 19:18 Blood Culture - Preliminary Blood NEGATIVE TO DATE A&P Assessment and plan (1) Non-ST elevation [place] (NSTEMI): (2) Hypertension: Qualifiers: Hypertension type: primary hypertension Qualified Code(s): I10 - Essential (primary) hypertension (3) Diabetes: Qualifiers: Diabetes mellitus type: type 2 Diabetes mellitus watermelon harvesting supervisor insulin use: without senior care use Diabetes mellitus complication status: without complication Qualified Code(s): E11.9 - Type 2 diabetes mellitus without complications (4) Uncontrolled type 2 diabetes mellitus: Plan Patient may be discharged from a cardiology standpoint. A long discussion was had with patient and that it is very important to take aspirin and Plavix and not to miss any doses of this or patient could have collapse of the stent or clot there causing massive heart attack. She verbalized full understanding. Activity restrictions were given to the patient as well. PDMP PDMP Reviewed: Not Reviewed Attestations Medical Necessity Statement*: Deferred to primary. Coding Level of Care Code Acute Code for [facility] Fwd Diagnoses Non-ST elevation [place] (NSTEMI) I21.4 Primary hypertension I10 Hypertension type: primary hypertension Type 2 diabetes mellitus without complication, without long-term current use of insulin E11.9 Diabetes mellitus type: type 2 Diabetes mellitus senior care insulin use: without watermelon harvesting supervisor use Diabetes mellitus complication status: without complication Uncontrolled type 2 diabetes mellitus
--- NOTE | 2024-10-04 15:27 | P.DS_ITS ---
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 She is transferred from outside hospital where she presented overnight because of chest pressure. Chest pressure started at around 10 PM last night associated with heaviness in her left shoulder and nausea. She denies any complaints right now. At the outside hospital she was diagnosed of non-ST elevation MO and was started on a heparin drip, given full dose aspirin. Currently when seen in the CSU patient is laying comfortably in bed. Denies any nausea, vomiting, headache or chest pains. Hospital Course Hospital Course Ric Garcia is a 58 year old female with past medical history of uncontrolled type 2 diabetes mellitus who presented with chest pain, found to have NSTEMI. Patient was treated medically and cardiology was consulted. She underwent cardiac catheterization revealing multivessel coronary artery disease with PCI and stent placement to left circumflex as well as diagonal branch as well as PCI of the OM. Patient's postprocedure course was uncomplicated. She was started on goal-directed medical therapy for coronary artery disease. Patient was found to have uncontrolled type 2 diabetes mellitus. She was started on insulin therapy. At discharge patient was started on Lantus at bedtime. She will start initially with 10 units at bedtime and slowly uptitrate based upon provided algorithm. She is to follow-up with her primary care provider within 1 week for further diabetes management. Overall, her symptomatology improved. She was discharged home in stable condition. Physical Exam Narrative: General: Patient is awake and alert. Very pleasant. Head: Normocephalic. Atraumatic. EOM intact. Neck: No JVD. Cardiovascular: RRR. No gallops. No murmurs. Lungs: Clear to auscultation, no use of accessory muscles, no crackles or wheezes. Skin: No jaundice. No rashes. Abdomen: Normal bowel sounds, abdomen soft and nontender. Rectal: Rectal exam not performed since no symptoms indicated blood loss. Extremities: No cyanosis or clubbing. Musculoskeletal:No swollen or erythematous joints. Neurological: Moves all 4 extremities. No myoclonus. Discharge Data Studies Completed and Pending Completed Studies During Hospitalization Category Date Time Status CV. echo complete* [id number] Routine Ultrasound 10/03/24 16:57 Completed Pending at discharge Category Date Time Status REGISTERED NURSE TEACHER request for service Routine Exams 10/03/24 09:39 Taken Blood Culture Routine Lab 10/02/24 19:21 Results Laboratory Results WBC 8.14 10^3/uL (3.29-11.43) 10/04/24 02:47 RBC 5.18 10^6/uL (3.85-5.65) 10/04/24 02:47 Hgb 13.40 g/dL (11.27-16.99) 10/04/24 02:47 Hct 39.9 % (36-47) 10/04/24 02:47 MCV 77.0 fl (85-98) L 10/04/24 02:47 MCH 25.9 pg (27-33) L 10/04/24 02:47 MCHC 33.6 g/dL (30-55) 10/04/24 02:47 RDW 11.7 % (12.1-15.1) L 10/04/24 02:47 Plt Count 307 10^3/cmm (157-399) 10/04/24 02:47 MPV 10.8 fL (7.4-10.4) H 10/04/24 02:47 Neut % (Auto) 72.9 % 10/04/24 02:47 Lymph % (Auto) 19.0 % 10/04/24 02:47 Bradford % (Auto) 5.7 % 10/04/24 02:47 Eos % (Auto) 1.6 % 10/04/24 02:47 Baso % (Auto) 0.6 % 10/04/24 02:47 Neut # (Auto) 5.93 10^3/uL (1.8-7.7) 10/04/24 02:47 Lymph # (Auto) 1.6 10^3/uL (0.8-4.8) 10/04/24 02:47 Bradford # (Auto) 0.5 10^3/uL (0.2-0.9) 10/04/24 02:47 Eos # (Auto) 0.1 10^3/uL (0.0-0.8) 10/04/24 02:47 Baso # (Auto) 0.1 10^3/uL (0.0-0.1) 10/04/24 02:47 Nucleated RBC % (auto) 0 % 10/04/24 02:47 Nucleated RBCs # 0.0 /100WBC 10/04/24 02:47 PT 12.80 SECONDS (12.1-14.9) 10/02/24 17:22 INR 0.90 (0.8-1.2) 10/02/24 17:22 APTT 38.4 SECONDS (23.9-36.7) H 10/02/24 17:22 Sodium 137 mmol/L (136-145) 10/04/24 02:47 Potassium 3.7 mmol/L (3.5-5.1) 10/04/24 02:47 Chloride 103 mmol/L (98-107) 10/04/24 02:47 Carbon Dioxide 23 mmol/L (22-29) 10/04/24 02:47 Anion Gap 14.7 (5-19) 10/04/24 02:47 BUN 9 mg/dL (6-20) 10/04/24 02:47 Creatinine 0.4 mg/dL (0.5-0.9) L 10/04/24 02:47 GFR Calculation 164.5 mL/min (90-130) H 10/04/24 02:47 Glucose 306 mg/dL (65-115) H 10/04/24 02:47 POC Glucose 143 mg/dL (70-110) H 10/04/24 11:16 Calculated Osmolality 294 mOsm/kg (285-295) 10/04/24 02:47 Lactic Acid 0.9 mmol/L (0.5-2.2) 10/02/24 17:22 Calcium 8.9 mg/dL (8.5-10.5) 10/04/24 02:47 Phosphorus 3.3 mg/dL (2.5-4.5) 10/04/24 02:47 Magnesium 1.9 mg/dL (1.7-2.3) 10/04/24 02:47 Iron 55 ug/dL (37-145) 10/02/24 17:22 TIBC 293 mcg/dl 10/02/24 17:22 % Saturation 18.7 % (20-50) L 10/02/24 17:22 Unsat Iron Binding 238 ug/dL (112-347) 10/02/24 17:22 Total Bilirubin 0.4 mg/dL (0.15-1.2) 10/04/24 02:47 AST 15 U/L (0-32) 10/04/24 02:47 ALT 13 U/L (0-33) 10/04/24 02:47 Alkaline Phosphatase 131 U/L (35-105) H 10/04/24 02:47 Troponin T Baseline 521 ng/L (0-10) H* 10/02/24 17:22 Troponin T 120 Minute 554.7 ng/L (0-10) H 10/02/24 19:18 Delta Troponin T 33.7 ABS# (0-10) H* 10/02/24 19:18 Troponin T Hi Sens 6Hr 846.4 ng/L (0-10) H 10/02/24 23:04 Troponin T Hi Sens 6Hr Delta 325.4 ng/L (0-12) H* 10/02/24 23:04 Total Protein 6.8 g/dL (6.6-8.7) 10/04/24 02:47 Albumin 3.7 g/dL (3.5-5.2) 10/04/24 02:47 Globulin 3.1 g/dL (1.3-4.6) 10/04/24 02:47 Vitamin B12 1737 pg/mL (232-1245) H 10/02/24 17:22 Folate 17.7 ng/mL (4.8-37.3) 10/03/24 03:44 Procalcitonin 0.02 ng/mL (0-0.5) 10/03/24 03:44 TSH 1.12 uIU/mL (0.27-4.20) 10/02/24 17:22 Vitals Last Vital Signs Temp 98.0 F 10/04/24 11:31 Pulse 86 10/04/24 11:31 Resp 18 10/04/24 11:31 BP 121/63 10/04/24 11:31 Pulse Ox 97 10/04/24 11:31 O2 Del Method Room Air 10/04/24 11:31 Discharge Plan Discharge Patient Disposition: Home Condition: Stable Prescriptions: New atorvastatin 40 mg Tablet 40 mg PO BEDTIME 90 Days Qty: 90 3RF insulin glargine [Lantus U-100 Insulin] 100 unit/mL Solution See Rx Instructions .ROUTE .COMPLEX 30 Days Qty: 7.5 0RF Rx Instructions: Initial dose 10 units at bedtime. Increase dose by provided algorithm up to maximum dose of 25 units nightly clopidogrel 75 mg Tablet 75 mg PO DAILY 90 Days Qty: 90 3RF aspirin 81 mg Tablet,Delayed Release (Dr/Ec) 81 mg PO DAILY 90 Days Qty: 90 3RF nitroglycerin 0.4 mg Tablet, Sublingual 0.4 mg sublingual Q5M PRN (Reason: Chest Pain) 90 Days Qty: 100 0RF metoprolol tartrate 25 mg Tablet 25 mg PO BID@0900,2100 90 Days Qty: 180 0RF Continued losartan 25 mg tablet 25 mg PO DAILY 30 Days Qty: 30 5RF metformin 500 mg tablet 500 mg PO DAILY 30 Days Qty: 30 5RF (DME) Blood Glucose Test Strip See Rx Instructions .Route Qty: 50 3RF Rx Instructions: Use to test blood sugar once daily (DME) blood-glucose meter [Blood Glucose Monitoring] Kit See Rx Instructions .Route Qty: 1 0RF Rx Instructions: Use to test blood sugar once daily (DME) lancets 33 gauge misc See Rx Instructions .Route Qty: 100 3RF Rx Instructions: Use to test blood sugar once daily Discharge Orders: Discharge Order (Routine); Ordered 10/04/24 Ordered By: Ramirez Madrid Referrals: Ghazal Smith FNP [Nurse Practitioner] - 10/18/24 10:45 am Teresita Huitron MD [Primary Care Provider] - 10/06/24 10:45 am Discharge Diet: Advance as tolerated, Usual diet, Cardiac, Diabetic and Low Salt Discharge Activity: Resume usual activity and Increase activity as tolerated Patient Instructions: Nitroglycerin (By mouth), Aspirin (By mouth), Atorvastatin (By mouth) (Lipitor, Atorvaliq), Clopidogrel (By mouth) (Plavix), Insulin Glargine (By injection) (Lantus, Lantus SoloStar, Toujeo, Semglee), Coronary Angioplasty (DC), Opioid Safety, Post Angiogram Home Care Instructions Activity Restrictions/Additional Instructions: Take medications as described. Monitor your sugar levels at home. Please keep a log. Ensure you are obtaining fasting sugars in the morning. Increase activity as tolerated. No strenuous activity for 2 weeks. PCP follow-up. 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
== END 2024-10-04 12:50 | disposition home or self-care (01) | DRG 322 ==
PROVIDERS: Internal Medicine; Internal Medicine Cardiovascular Disease; Admitting Provider Student in an Organized Health Care Education/Training Program; PCP Family Medicine; Visit Provider Internal Medicine
PROC: 027135Z Dilation of Coronary Artery, Two Arteries with Two Drug-eluting Intraluminal Devices, Percutaneous Approach (ICD-10-PCS; principal; 2024-10-03 11:30)
PROC: 027135Z Dilation of Coronary Artery, Two Arteries with Two Drug-eluting Intraluminal Devices, Percutaneous Approach (ICD-10-PCS; 2024-10-03 11:30)
DX: I21.4 Non-ST elevation (NSTEMI) myocardial infarction (principal); I10 Essential (primary) hypertension; E11.65 Type 2 diabetes mellitus with hyperglycemia; Z91.128 Patient's intentional underdosing of medication regimen for other reason; I25.10 Atherosclerotic heart disease of native coronary artery without angina pectoris; Z79.84 Long term (current) use of oral hypoglycemic drugs; Z79.82 Long term (current) use of aspirin; E78.5 Hyperlipidemia, unspecified; Z79.4 Long term (current) use of insulin; Z79.02 Long term (current) use of antithrombotics/antiplatelets
CPT/HCPCS: 36415; 36416; 80053; 82607; 82746; 82962; 83540; 83550; 83605; 83735; 84100; 84145; 84443; 84484; 85025; 85347; 85610; 85730; 87040; 92921; 93005; 93306; 93454; 96372; 96374; 96376; 99152; 99153; C1725; C1769; C1874; C1887; C1894; C9600; C9601; G0379; J1644; J1650; J1815; J2250; J2470; J3010; J3490; J7030; J9999; Q0163; Q9967

== ENCOUNTER → 2024-12-19 15:15 | Outpatient (BNVA) | payer BC, MEDICAID, SELFPAY | PROVIDERS: PCP Family Medicine; Visit Provider Nurse Practitioner | DX: M79.606 Pain in leg, unspecified (principal) | CPT/HCPCS: 80048; 83735 ==

== ENCOUNTER 2024-12-23 16:42 | Emergency (ER) | payer BC, MEDICAID, SELFPAY ==
[2024-12-23 16:49] VITALS: BP 180/91; PULSE 75; RESP 16; TEMP 36.7; O2SAT 98; BMI 24.8
--- NOTE | 2024-12-23 17:57 | CTR_ITS ---
PROCEDURE INFORMATION: Exam: CT Abdomen And Pelvis With Contrast Exam date and time: 12/23/2024 6:14 PM Age: 59 years old Clinical indication: Abdominal pain; Localized; Right lower quadrant (rlq); Prior surgery; Surgery date: 6+ months; Surgery type: Tubal; C/O rlq pain with nausea TECHNIQUE: Imaging protocol: Computed tomography of the abdomen and pelvis with contrast. Radiation optimization: All CT scans at this facility use at least one of these dose optimization techniques: automated exposure control; mA and/or kV adjustment per patient size (includes targeted exams where dose is matched to clinical indication); or iterative reconstruction. Contrast material: OMNI 350; Contrast volume: 80 ml; Contrast route: INTRAVENOUS (IV); COMPARISON: CT angio abdomen pelvis [id number] 10/02/2024 12:15 PM RADIATION DOSE METRICS: Total DLP (mGy-cm): 294.32 FINDINGS: Liver: Normal. No mass. Gallbladder and biliary ducts: There may be some subtle filling defects in the gallbladder which may represent gallstones. Gallbladder is otherwise unremarkable. Pancreas: Normal. No ductal dilation. Spleen: Normal. No splenomegaly. Adrenal glands: Normal. No mass. Kidneys and ureters: Normal. No hydronephrosis. Stomach and bowel: Prominent fecal material throughout the colon without definite dilatation. No bowel wall thickening. Slight focal dilatation of the terminal ileum measuring 2.8 cm in caliber. Appendix: No evidence of appendicitis. Intraperitoneal space: Unremarkable. No free air. No significant fluid collection. Vasculature: Unremarkable. No abdominal aortic aneurysm. Lymph nodes: Unremarkable. No enlarged lymph nodes. Urinary bladder: Unremarkable as visualized. Reproductive: Unremarkable as visualized. Bones/joints: Unremarkable. No acute fracture. Soft tissues: Unremarkable. CT/CT abdomen pelvis w con* [id number] IMPRESSION: 1. Prominent stool throughout the colon. Query constipation/mild obstipation. 2. Possible subtle cholelithiasis.
--- NOTE | 2024-12-23 17:57 | W.ED.ABDPA2 ---
HPI - Abdominal Pain General: Chief Complaint: Abdominal Pain Stated Complaint: abs pain Time Seen by Provider: 12/23/24 17:19 Source: patient Mode of arrival: ambulatory Limitations: no limitations History of Present Illness: This patient comes to the Emergency Department because of progressive lower abdominal pain. She states she has been having some intermittent pain in her right lower quadrant of the right lower abdomen for approximately 2 weeks that seems to have worsened today and exacerbated by attempting to stool as well as riding in the car. She states she has not had fever or chills. She has not had any blood in her stools and she did have a normal bowel movement today. She has been eating and drinking normally. She has had a tubal ligation but no other abdominal procedures. She has coronary artery disease and recently had a STEMI that required stenting. She has been taking all her medications faithfully. She denies chest pain shortness of breath or other constitutional symptoms at this time. MD elicited complaint: abdominal pain Pain Consistency: intermittent Location: RLQ Severity: moderate Quality: aching and fullness Radiation: none Migration to: no migration Exacerbating factors: bowel movement Associated Symptoms: Denies chills, diarrhea, dysuria, fever(s), hematochezia, melena, nausea and vomiting Related Data Previous Rx's ?Medication ?Instructions ?Recorded blood-glucose meter (Blood Glucose #1 ea 09/28/24 Monitoring kit) lancets 33 gauge #100 ea 09/28/24 losartan 25 mg tablet 25 mg PO DAILY 30 days #30 tabs 09/28/24 metformin 500 mg tablet 500 mg PO DAILY 30 days #30 tabs 09/28/24 aspirin 81 mg tablet,delayed 81 mg PO DAILY 90 days #90 tabs 10/04/24 release atorvastatin 40 mg tablet 40 mg PO BEDTIME 90 days #90 tabs 10/04/24 Held on 11/07/24. Instructions: Home Medication placed on hold at Doctor's office clopidogrel 75 mg tablet 75 mg PO DAILY 90 days #90 tabs 10/04/24 nitroglycerin 0.4 mg sublingual 0.4 mg sublingual Q5M PRN Chest 10/04/24 tablet Pain 90 days #100 tabs insulin syringe,safety needle 0.5 #100 ea 10/17/24 mL 30 gauge x 5/16 (BD SafetyGlide Insulin Syringe) blood sugar diagnostic (Blood #50 ea 11/07/24 Glucose Test strips) insulin glargine 100 unit/mL 10 unit (0.1 mL) SUBCUT QAM 30 11/07/24 subcutaneous solution (Lantus days #3 mL U-100 Insulin) metoprolol tartrate 25 mg tablet 25 mg PO BID 90 days #180 tabs 11/07/24 rosuvastatin 10 mg tablet 10 mg PO .at bedtime #30 tabs 11/07/24 gabapentin 100 mg capsule 100 mg PO BEDTIME #30 caps 12/21/24 Allergies Allergy/AdvReac Type Severity Reaction Status Date / Time No Known Allergies Allergy Verified 12/23/24 16:53 Review of Systems Const: Denies: fever(s) or chills Eyes: Denies: change in vision ENMT: Denies: throat pain, odynophagia, nasal discharge or nasal congestion Card: Denies: chest pain, palpitations or irregular heart rhythm Resp: Denies: dyspnea, productive cough or non-productive cough GI: Reports: abdominal pain; Denies: nausea, vomiting, diarrhea, hematochezia or melena : Denies: flank pain, difficulty voiding, dysuria or urinary frequency Musc: Denies: neck pain, back pain, extremity pain or extremity swelling Neuro: Denies: headache(s), numbness in extremities or weakness in extremities Eduardo/Lymph: Reports: easy bruising PFSH ED PFSH: Medical History Non compliance with medical treatment Diabetes Hypertension Surgical History History of coronary artery stent placement Status post cervical polyp removal History of bilateral tubal ligation Family History Other Medical history unknown Social History Smoking and tobacco/nicotine status: never used tobacco/nicotine Female Reproductive History: Para: 1 Spontaneous abortions: No Date of menopause: 03/29/20 Physical Exam Narrative: EXAM NARRATIVE: She appears to be comfortable and in no acute distress. She is cooperative during the evaluation and answers questions in a goal-directed fashion. Const: COMMON NORMALS: no acute distress, average body habitus and patient oriented x3 GENERAL APPEARANCE: cooperative and comfortable HENMT: COMMON NORMALS: atraumatic, Normal nasal mucous membranes and turbinates present and moist oral mucous membranes HEAD & SCALP: atraumatic NOSE: Normal nasal mucous membranes and turbinates present Eye: COMMON NORMALS: Equal, round and reactive pupils present, EOMs intact bilaterally and no scleral icterus PUPIL: Yes Equal, round and reactive pupils present Neck/C-Spine: COMMON NORMALS: full ROM and no lymphadenopathy Resp: COMMON NORMALS: normal respiratory effort, No use of accessory muscles and clear to auscultation bilaterally EFFORT & INSPECTION: Yes able to speak in complete sentences AUSCULTATION: clear to auscultation bilaterally Cardio: COMMON NORMALS: regular rate, regular rhythm, No murmurs present (Cardio) and Peripheral pulses 2+ throughout RATE: regular rate RHYTHM: regular rhythm PERIPHERAL PULSES: Peripheral pulses 2+ throughout GI: COMMON NORMALS: Normal to inspection, nondistended, normoactive bowel sounds present OTHER: She has negative Rovsing negative heeltap. She does have some mild subjective tenderness to deep palpation in the right lower quadrant but no rebound or guarding noted. No masses felt. : COMMON NORMALS: Yes no CVA tenderness BLADDER/KIDNEY EXAM: Yes no CVA tenderness Back/Pelvis: COMMON NORMALS: no CVA tenderness, thoracic and lumbar spine normal to inspection, no thoracic nor lumbar tenderness and thoraco-lumbar ROM normal Extremity: COMMON NORMALS: normal to inspection, full ROM, no calf tenderness and no pedal edema Neuro: COMMON NORMALS: patient oriented x3, moves all extremities, no focal motor deficits and no sensory deficits noted Skin: COMMON NORMALS: no rashes or lesions noted and turgor normal GENERAL SKIN EXAM: no rashes or lesions noted and turgor normal Course Reevaluation(s): Reevaluation #1: Stable at this time without any new or focal findings. Repeat examination reveals no evidence of change in her exam, peritoneal signs or other concerning findings. I have reviewed the reassuring nature of her imaging and other look laboratory testing at this time. I recommended a trial of MiraLAX to help with some of her likely functional disorder. also asked me about her medications that she has stopped and he is curious why her blood pressure is going up. Apparently she has stopped her clopidogrel her atorvastatin as well as her Toprol all. She apparently was having muscle cramps and thought that 1 of those medicines was contributing to that. I encouraged them to get back on the metoprolol as well as the clopidogrel for sure and discussed with her doctor an alternative cholesterol/LDL lowering medication to help with secondary prevention. Also discussed return precautions regarding her abdominal pain in detail. Time: 19:13 Vital Signs: Vital signs: Vital Signs Temperature 98.0 F 12/23/24 16:49 Pulse Rate 71 12/23/24 19:00 Respiratory Rate 16 12/23/24 16:49 Blood Pressure 152/93 12/23/24 19:00 Pulse Oximetry 98 12/23/24 19:00 Oxygen Delivery Me thod Room Air 12/23/24 19:00 MDM - Abdominal Pain Medical Decision Making This patient presented to the emerged part because of lower abdominal pain has been present off and on for the last 2 weeks and seem to be more worrisome to her today. Her became concerned because he thought it might represent something like an appendicitis and prompted her to come. She has had no fevers nausea vomiting diarrhea etc. She has had a tubal ligation but no other abdominal surgeries. Her clinical exam was really not remarkable for any peritoneal signs or clinical findings to suggest a surgical abdomen however workup ensued to ensure that there was no occult pathology. Laboratories were all reassuring as well as imaging was reassuring without any evidence of a surgical condition at this time. There was some concern consideration of possible slow transit time and that may be a contributing factor. Given the fact that she has diabetes that certainly could be an autonomic dysfunction playing into her current presentation. I recommended that she start a MiraLAX regimen to see if that helps her symptoms. We also discussed the need to be adherent to her prescribed medications. Stable at this time for discharge. Lab Data I reviewed the patient's lab results. 12/23/24 17:52 12/23/24 17:52 Labs/Radiology: Radiology Impressions Abdomen/Pelvis CT 12/23/24 17:57 IMPRESSION: 1. Prominent stool throughout the colon. Query constipation/mild obstipation. 2. Possible subtle cholelithiasis. Laboratory Results WBC 5.87 10^3/uL (3.29-11.43) 12/23/24 17:52 RBC 4.48 10^6/uL (3.85-5.65) 12/23/24 17:52 Hgb 11.70 g/dL (11.27-16.99) 12/23/24 17:52 Hct 35.2 % (36-47) L 12/23/24 17:52 MCV 78.6 fl (85-98) L 12/23/24 17:52 MCH 26.1 pg (27-33) L 12/23/24 17:52 MCHC 33.2 g/dL (30-55) 12/23/24 17:52 RDW 12.8 % (12.1-15.1) 12/23/24 17:52 Plt Count 243 10^3/cmm (157-399) 12/23/24 17:52 MPV 11.1 fL (7.4-10.4) H 12/23/24 17:52 Neut % (Auto) 65.9 % 12/23/24 17:52 Lymph % (Auto) 24.7 % 12/23/24 17:52 Caldwell % (Auto) 4.8 % 12/23/24 17:52 Eos % (Auto) 3.4 % 12/23/24 17:52 Baso % (Auto) 0.9 % 12/23/24 17:52 Neut # (Auto) 3.87 10^3/uL (1.8-7.7) 12/23/24 17:52 Lymph # (Auto) 1.5 10^3/uL (0.8-4.8) 12/23/24 17:52 [place]dwell # (Auto) 0.3 10^3/uL (0.2-0.9) 12/23/24 17:52 Eos # (Auto) 0.2 10^3/uL (0.0-0.8) 12/23/24 17:52 Baso # (Auto) 0.1 10^3/uL (0.0-0.1) 12/23/24 17:52 Nucleated RBC % (auto) 0 % 12/23/24 17:52 Nucleated RBCs # 0.0 /100WBC 12/23/24 17:52 Sodium 140 mmol/L (136-145) 12/23/24 17:52 Potassium 3.7 mmol/L (3.5-5.1) 12/23/24 17:52 Chloride 107 mmol/L (98-107) 12/23/24 17:52 Carbon Dioxide 21 mmol/L (22-29) L 12/23/24 17:52 Anion Gap 15.7 (5-19) 12/23/24 17:52 BUN 12 mg/dL (6-20) 12/23/24 17:52 Creatinine 0.3 mg/dL (0.5-0.9) L 12/23/24 17:52 GFR Calculation 228.5 mL/min (90-130) H 12/23/24 17:52 Glucose 125 mg/dL (65-115) H 12/23/24 17:52 Calculated Osmolality 291 mOsm/kg (285-295) 12/23/24 17:52 Calcium 9.3 mg/dL (8.5-10.5) 12/23/24 17:52 Magnesium 2.2 mg/dL (1.7-2.3) 12/23/24 17:52 Total Bilirubin 0.2 mg/dL (0.15-1.2) 12/23/24 17:52 AST 31 U/L (0-32) 12/23/24 17:52 ALT 28 U/L (0-33) 12/23/24 17:52 Alkaline Phosphatase 124 U/L (35-105) H 12/23/24 17:52 Total Protein 6.6 g/dL (6.6-8.7) 12/23/24 17:52 Albumin 4.1 g/dL (3.5-5.2) 12/23/24 17:52 Globulin 2.5 g/dL (1.3-4.6) 12/23/24 17:52 Lipase 11 U/L (13-60) L 12/23/24 17:52 Urine Color Yellow (Yellow) 12/23/24 17:30 Urine Appearance Clear (CLEAR) 12/23/24 17:30 Urine pH 6.5 (5-7) 12/23/24 17:30 Ur Specific [place] 1.005 (1.005-1.030) 12/23/24 17:30 Urine Protein Negative (Negative) 12/23/24 17:30 Urine Glucose (UA) Negative (Normal) 12/23/24 17:30 Urine Ketones Negative (Negative) 12/23/24 17:30 Urine Blood Negative (Negative) 12/23/24 17:30 Urine Nitrate Negative (Negative) 12/23/24 17:30 Urine Bilirubin Negative (Negative) 12/23/24 17:30 Urine Urobilinogen 0.2 mg/dL (Negative) 12/23/24 17:30 Ur Leukocyte Esterase Negative (Negative) 12/23/24 17:30 Urine RBC 0-2 /hpf (0-2) 12/23/24 17:30 Urine WBC 0-5 /hpf (0-5) 12/23/24 17:30 Ur Squamous Epith Cells 0-5 /hpf (0-5) 12/23/24 17:30 Amorphous Sediment Not Reportable 12/23/24 17:30 Urine Bacteria None seen /hpf (NONE) 12/23/24 17:30 Hyaline Casts 0-4 /lpf H 12/23/24 17:30 All radiology interpretation(s) finalized by discharge Discharge Plan Discharge Patient Disposition: Home Clinical Impression: Abdominal pain Qualifiers: Abdominal location: right lower quadrant Qualified Code(s): R10.31 - Right lower quadrant pain Condition: Stable Prescriptions: No Action rosuvastatin 10 mg tablet 10 mg PO .at bedtime Qty: 30 5RF metoprolol tartrate 25 mg tablet 25 mg PO BID 90 Days Qty: 180 0RF insulin glargine [Lantus U-100 Insulin] 100 unit/mL solution 10 unit SUBCUT QAM 30 Days Qty: 3 5RF (DME) Blood Glucose Test Strip See Rx Instructions .Route Qty: 50 3RF Rx Instructions: Use to test blood sugar once daily losartan 25 mg tablet 25 mg PO DAILY 30 Days Qty: 30 5RF metformin 500 mg tablet 500 mg PO DAILY 30 Days Qty: 30 5RF (DME) blood-glucose meter [Blood Glucose Monitoring] Kit See Rx Instructions .Route Qty: 1 0RF Rx Instructions: Use to test blood sugar once daily (DME) lancets 33 gauge misc See Rx Instructions .Route Qty: 100 3RF Rx Instructions: Use to test blood sugar once daily (DME) BD SafetyGlide Insulin Syringe 0.5 mL 30 gauge x 5/16 syringe See Rx Instructions .Route Qty: 100 0RF Rx Instructions: As directed gabapentin 100 mg capsule 100 mg PO BEDTIME Qty: 30 0RF atorvastatin 40 mg Tablet 40 mg PO BEDTIME 90 Days Qty: 90 3RF clopidogrel 75 mg Tablet 75 mg PO DAILY 90 Days Qty: 90 3RF aspirin 81 mg Tablet,Delayed Release (Dr/Ec) 81 mg PO DAILY 90 Days Qty: 90 3RF nitroglycerin 0.4 mg Tablet, Sublingual 0.4 mg sublingual Q5M PRN (Reason: Chest Pain) 90 Days Qty: 100 0RF Discharge Orders: Discharge ED (Routine); Ordered 12/23/24 Ordered By: Ken Alexander Referrals: Teresita Huitron MD [Primary Care Provider, [facility]] Patient Instructions: Abdominal Pain (ED), Opioid Safety, Pain Management, Patient Portal & Igor Instructions Activity Restrictions/Additional Instructions: As we discussed while you are in the emergency department today there is no evidence at this time that you have a serious surgical condition such as appendicitis, bowel blockage etc. at this time. We recommend that you purchase MiraLAX which is a safe and effective medication to help with bowel regularity. Use 2 tablespoons in water or juice or drink of your choice each morning. If your stools become loose or too frequent you may go down to 1 teaspoon daily. It is important that you take all your usual prescribed medications and consult with your physician regarding alternative medication for lowering her cholesterol. If it anytime you have worsening of your abdominal pain symptoms or any other concerning symptoms return to this or the nearest emergency department for reevaluation. Print Language: Portuguese Coding Level of Care Code ED Topstitcher Zigzag for Gail Ware
[2024-12-23] MEDS: iohexol 350 mg/mL 500 mL Btl (per mL) IV (18:16)
[2024-12-23 18:18] LABS: Bilirubin Urine Negative (Negative); Blood Urine Negative (Negative); Glucose Urine UA Negative (Normal); Ketones Urine Negative (Negative); Leukocyte Esterase Urine Negative (Negative); Nitrate Urine Negative (Negative); Protein Urine Negative (Negative); Specific Gravity, Urine 1.005 (1.005-1.030); Urine Appearance Clear (CLEAR); Urine Color Yellow (Yellow); Urobilinogen Urine 0.2 mg/dL (Negative); pH Urine 6.5 (5-7)
[2024-12-23 18:20] LABS: Add Urine Microscopic? YES; Bacteria Urine None Seen /hpf; Hyaline Casts Urine 0-4 /lpf; RBC Urine 0-2 /hpf (0-2); Squamous Epithelial Cell Urine 0-5 /hpf (0-5); WBC Urine 0-5 /hpf (0-5)
[2024-12-23 18:22] LABS: Basophils # 0.1 10^3/uL (0.0-0.1); Basophils % 0.9 %; Eosinophils # 0.2 10^3/uL (0.0-0.8); Eosinophils % 3.4 %; Hematocrit 35.2 % (36-47); Lymphocytes # 1.5 10^3/uL (0.8-4.8); Lymphocytes % 24.7 %; Mean Corpuscular HGB Conc 33.2 g/dL (30-55); Mean Corpuscular Hemoglobin 26.1 pg (27-33); Mean Corpuscular Volume 78.6 fl (85-98); Mean Platelet Volume 11.1 fL (7.4-10.4); Monocytes # 0.3 10^3/uL (0.2-0.9); Monocytes % 4.8 %; Neutrophils # 3.87 10^3/uL (1.8-7.7); Neutrophils % 65.9 %; Nucleated Red Blood Cells % 0 %; Platelet Count 243 10^3/cmm (157-399); Red Blood Count 4.48 10^6/uL (3.85-5.65); Red Cell Distribution Width 12.8 % (12.1-15.1); White Blood Count 5.87 10^3/uL (3.29-11.43)
[2024-12-23 18:38] LABS: Alanine Aminotransferase 28 U/L (0-33); Albumin Level 4.1 g/dL (3.5-5.2); Alkaline Phosphatase 124 U/L (35-105); Anion Gap 15.7 (5-19); Aspartate Amino Transferase 31 U/L (0-32); Blood Urea Nitrogen 12 mg/dL (6-20); Calcium 9.3 mg/dL (8.5-10.5); Carbon Dioxide 21 mmol/L (22-29); Chloride 107 mmol/L (98-107); Globulin 2.5 g/dL (1.3-4.6); Glomerular Filtration Rate 228.5 mL/min (90-130); Glucose 125 mg/dL (65-115); Lipase 11 U/L (13-60); Magnesium 2.2 mg/dL (1.7-2.3); Osmolality Calculated 291 mOsm/kg (285-295); Potassium 3.7 mmol/L (3.5-5.1); Sodium 140 mmol/L (136-145); Total Bilirubin 0.2 mg/dL (0.15-1.2); Total Protein 6.6 g/dL (6.6-8.7)
[2024-12-23 18:42] VITALS: BP 181/100; PULSE 70; O2SAT 99
[2024-12-23 19:00] VITALS: BP 152/93; PULSE 71; O2SAT 98
[2024-12-23 19:20] VITALS: BP 152/93; PULSE 76; O2SAT 99
== END 2024-12-23 19:21 | disposition home or self-care (01) ==
PROVIDERS: Emergency Provider Emergency Medicine; PCP Family Medicine
DX: R10.31 Right lower quadrant pain (principal); Z79.4 Long term (current) use of insulin; Z79.02 Long term (current) use of antithrombotics/antiplatelets; Z79.82 Long term (current) use of aspirin; E11.9 Type 2 diabetes mellitus without complications; I10 Essential (primary) hypertension
CPT/HCPCS: 36415; 74177; 80053; 81001; 83690; 83735; 85025; 99285

== ENCOUNTER → 2025-01-25 13:59 | Outpatient (BNVA) | payer BC, MEDICAID, SELFPAY | PROVIDERS: PCP Family Medicine; Visit Provider Family Medicine | DX: I10 Essential (primary) hypertension (principal); E11.9 Type 2 diabetes mellitus without complications | CPT/HCPCS: 80048; 83036 ==

== ENCOUNTER → 2025-02-06 15:05 | Outpatient (BNVA) | payer BC, MEDICAID, SELFPAY | PROVIDERS: PCP Family Medicine; Visit Provider Nurse Practitioner | DX: E11.40 Type 2 diabetes mellitus with diabetic neuropathy, unspecified (principal); R10.30 Lower abdominal pain, unspecified | CPT/HCPCS: 81000; 85025 ==

== ENCOUNTER → 2025-02-10 11:05 | Outpatient (BNVA) | payer BC, MEDICAID, SELFPAY | PROVIDERS: PCP Family Medicine; Visit Provider Internal Medicine Cardiovascular Disease | DX: I10 Essential (primary) hypertension (principal); I25.118 Atherosclerotic heart disease of native coronary artery with other forms of angina pectoris; I21.4 Non-ST elevation (NSTEMI) myocardial infarction | CPT/HCPCS: 36415; 80048; 85025; 85610 ==

== ENCOUNTER → 2025-05-23 14:26 | Outpatient (BNVA) | payer BC, MEDICAID, SELFPAY | PROVIDERS: PCP Family Medicine; Visit Provider Family Medicine | DX: E11.9 Type 2 diabetes mellitus without complications (principal) | CPT/HCPCS: 80048; 83036 ==

== ENCOUNTER 2025-06-25 10:52 | Emergency (ER) | payer BC, MEDICAID, SELFPAY ==
--- NOTE | 2025-06-25 10:55 | XRR_ITS ---
PROCEDURE INFORMATION: Exam: XR Chest Exam date and time: 06/25/2025 12:57 PM Age: 59 years old Clinical indication: Pain; Chest pressure; Prior Surgery; Surgery Date: 1-6 months; Surgery Type: CARDIAC STENT X 2 10/2024; Additional Info: CHEST PAIN; SOB; extremity swelling/aching; mi with cardiac stent (2) X 6MO AGO TECHNIQUE: Imaging protocol: Radiologic exam of the chest. Views: 1 view. COMPARISON: 1. CT angio chest [id number] 10/02/2024 12:15 PM 2. DX XR chest 1V portable [id number] 10/02/2024 11:22 AM FINDINGS: Lungs: Lungs are well aerated. Pulmonary vascularity is normal. No suspicious pulmonary nodule/s. No focal consolidation is appreciated. Pleural spaces: No pleural effusion. No pneumothorax. Heart/Mediastinum: Mild cardiomegaly is noted. Bones/joints: The spine demonstrates mild degenerative changes at multiple levels. There is no acute fracture or dislocation. XR/XR chest 1V portable [id number] IMPRESSION: 1. No acute findings. 2. Mild cardiomegaly.
[2025-06-25 10:57] VITALS: BP 184/79; PULSE 90; TEMP 36.7; O2SAT 98; BMI 22.5
--- NOTE | 2025-06-25 11:02 | ECG_ITS ---
[facility] Test Date: 2025-06-25 Pat Name: Ric Garcia Department: Room: Gender: Female Biodiesel Production Associate: : 1965 Requested By: Ariel Sullivan Order Number: [id number] Reading MD: KORI TERESA Measurements Intervals [place] Rate: 84 P: 11 VT: 159 QRS: 32 QRSD: 78 T: 126 QT: 329 QTc: 391 Interpretive Statements SINUS RHYTHM POSSIBLE ANTERIOR MYOCARDIAL INFARCTION , OF INDETERMINATE AGE [30 ms Q WAVE IN V3/V4, OR R < 0.2 mV IN V4] MODERATE T-WAVE ABNORMALITY, CONSIDER LATERAL ISCHEMIA [-0.1+ mV T-WAVE IN I/aVL/V5/V6] Compared to ECG 10/03/2024 22:01:18 Myocardial infarct finding now present Possible ischemia now present T-wave abnormality still present Electronically Signed On 06-25-2025 22:54:02 TECHNICAL PRODUCER by KORI TERESA [email or web address]
[2025-06-25 12:06] LABS: Hematocrit 41.8 % (36-47); Hemoglobin 13.70 g/dL (11.27-16.99); Mean Corpuscular HGB Conc 32.8 g/dL (30-55); Mean Corpuscular Hemoglobin 25.9 pg (27-33); Mean Corpuscular Volume 79.2 fl (85-98); Nucleated Red Blood Cells % 0 %; Platelet Count 241 10^3/cmm (157-399); Red Blood Count 5.28 10^6/uL (3.85-5.65); White Blood Count 7.63 10^3/uL (3.29-11.43)
[2025-06-25 12:17] LABS: INR 0.80 (0.8-1.2); Prothrombin Time 11.60 SECONDS (12.1-14.9)
--- NOTE | 2025-06-25 12:20 | ECG_ITS ---
[facility] Date: 2025-[facility]25 Pat Name: Ric Garcia Department: Room: Gender: Female Braiding Operator: : 1965 Requested By: Ariel Sullivan Order Number: [id number] Reading MD: KORI TERESA Measurements Intervals [place] Rate: 79 P: 24 NH: 163 QRS: 27 QRSD: 77 T: 103 QT: 358 QTc: 412 Interpretive Statements SINUS RHYTHM POSSIBLE ANTERIOR MYOCARDIAL INFARCTION , OF INDETERMINATE AGE [30 ms Q WAVE IN V3/V4, OR R < 0.2 mV IN V4] MODERATE T-WAVE ABNORMALITY, CONSIDER LATERAL ISCHEMIA [-0.1+ mV T-WAVE IN I/aVL/V5/V6] Compared to ECG 06/25/2025 11:02:04 No significant changes Electronically Signed On 06-25-2025 23:18:50 FABRICATOR FOAM RUBBER by KORI TERESA [email or web address]
[2025-06-25 12:23] LABS: Troponin(5th) Baseline < 6 ng/L (0-10)
[2025-06-25 12:46] LABS: Alanine Aminotransferase 25 U/L (0-33); Albumin Level 4.6 g/dL (3.5-5.2); Alkaline Phosphatase 113 U/L (35-105); Anion Gap 16.5 (5-19); Aspartate Amino Transferase 21 U/L (0-32); Blood Urea Nitrogen 11 mg/dL (6-20); Calcium 9.6 mg/dL (8.5-10.5); Carbon Dioxide 25 mmol/L (22-29); Chloride 100 mmol/L (98-107); Globulin 2.4 g/dL (1.3-4.6); Glucose 204 mg/dL (65-115); NT Pro B Type Natriuretic Pept 59 pg/mL (0-125); Osmolality Calculated 289 mOsm/kg (285-295); Potassium 4.5 mmol/L (3.5-5.1); Sodium 137 mmol/L (136-145); Total Protein 7.0 g/dL (6.6-8.7)
--- NOTE | 2025-06-25 13:06 | USR_ITS ---
PROCEDURE INFORMATION: Exam: US Duplex Right Lower Extremity Veins, Limited Exam date and time: 06/25/2025 2:03 PM Age: 59 years old Clinical indication: Other: stephane's positive TECHNIQUE: Imaging protocol: Real-time duplex ultrasound of the right extremity with 2-D mac scale, color Doppler flow and spectral waveform analysis including responses to compression and other maneuvers (when performed) with image documentation. Limited exam was focused on the right lower extremity veins. COMPARISON: CR (LOW EXM, ) 06/25/2025 1:08 PM FINDINGS: Right deep veins: Unremarkable. The common femoral, femoral, proximal profunda femoral and popliteal veins are patent without thrombus. Normal Doppler waveforms. Normal compressibility and/or augmentation response. Superficial veins: Greater saphenous vein at the saphenofemoral junction is patent without thrombus. Soft tissues: Unremarkable. US/[place] [id number] IMPRESSION: No evidence of deep vein thrombosis.
--- NOTE | 2025-06-25 13:06 | USR_ITS ---
PROCEDURE INFORMATION: Exam: US Duplex Right Lower Extremity Veins, Limited Exam date and time: 06/25/2025 2:14 PM Age: 59 years old Clinical indication: Pain; Arm, upper and Arm, lower; Right; Additional Info: redness, muscle pain TECHNIQUE: Imaging protocol: Real-time duplex ultrasound of the right extremity with 2-D mac scale, color Doppler flow and spectral waveform analysis including responses to compression and other maneuvers (when performed) with image documentation. Limited exam was focused on the right lower extremity veins. COMPARISON: [place] [id number] 06/25/2025 2:03 PM FINDINGS: Right deep veins: Unremarkable. The common femoral, femoral, proximal profunda femoral and popliteal veins are patent without thrombus. Normal Doppler waveforms. Normal compressibility and/or augmentation response. Superficial veins: Greater saphenous vein at the saphenofemoral junction is patent without thrombus. Soft tissues: Unremarkable. US/[place] [id number] IMPRESSION: No evidence of deep vein thrombosis.
--- NOTE | 2025-06-25 13:07 | ED_ITS ---
HPI - Extremity Problem 2 General: Chief complaint: Extremity Problem,Nontraumatic Stated complaint: chest pain, R arm pain, R leg pain Time Seen by Provider: 06/25/25 12:58 History of Present Illness: Patient is a 59-year-old female with history of CAD, on clopidogrel, presents to the emergency room due to right calf pain, and right proximal arm pain. Context: Patient started having pain approximately 2 days ago. This is worsening in nature. Her right proximal arm has some associated redness, and warmth. Her right lower extremity has pain in her calf. No fevers. Associated symptoms: Deny chest pain, fever(s) or rash Related Data Home Medications ?Medication ?Instructions ?Recorded ?Confirmed insulin glargine 100 unit/mL 10 - 15 unit SUBCUT QACaty P RN high 06/25/25 06/25/25 subcutaneous solution (Lantus blood sugar U-100 Insulin) Previous Rx's ?Medication ?Instructions ?Recorded blood-glucose meter (Blood Glucose #1 ea 09/28/24 Monitoring kit) lancets 33 gauge #100 ea 09/28/24 aspirin 81 mg tablet,delayed 81 mg PO DAILY 90 days #9 0 tabs 10/04/24 release blood sugar diagnostic (Blood #50 ea 03/28/25 Glucose Test strips) insulin syringe,safety needle 0.5 #100 ea 04/28/25 mL 30 gauge x 5/16 (BD SafetyGlide Insulin Syringe) clopidogrel 75 mg tablet 75 mg PO DAILY 90 days #90 t abs 05/23/25 gabapentin 100 mg capsule 200 mg (2 x 100 mg) PO BID 3 0 days 05/23/25 #120 caps metformin 500 mg tablet 500 mg PO DAILY 30 days #30 tabs 05/23/25 cephalexin 500 mg capsule 500 mg PO QID 7 days #28 cap s 06/25/25 diclofenac sodium 75 mg 75 mg PO BID PRN pain #30 ta bs 06/25/25 tablet,delayed release Allergies Allergy/AdvReac Type Severity Reaction Status Date / Time latex Allergy Unknown Verified 06/25/25 11:08 Review of Systems 2 Const: Denies: fever(s) or fatigue Eyes: Denies: change in vision Card: Denies: chest pain Resp: Denies: dyspnea GI: Denies: abdominal pain or change in bowel habits : Denies: difficulty voiding Musc: Reports: extremity pain, joint pain, joint swelling, joint stiffness, limited range of motion and muscle cramps; Denies: neck pain, back pain or muscle weakness Skin/Breast: Denies: rash Neuro: Denies: headache(s) Eduardo/Lymph: Denies: easy bleeding PFSH ED 2 PFSH: Medical History (Updated 06/25/25 @ 14:26 by GIOVANNY Deleon) Non compliance with medical treatment Diabetes Hypertension Surgical History History of coronary artery stent placement Status post cervical polyp removal History of bilateral tubal ligation Family History Other Medical history unknown Social History Smoking and tobacco/nicotine status: never used tobacco/nicotine Female Reproductive History: Para: 1 Spontaneous abortions: No Date of menopause: 03/29/20 Physical Exam 2 Const: COMMON NORMALS: no acute distress, patient oriented x3 and alert G ENERAL APPEARANCE: cooperative HENMT: COMMON NORMALS: atraumatic HEAD & SCALP: atraumatic Eye: COMMON NORMALS: conjunctivae normal CONJUNCTIVA: Yes conjunctivae normal Resp: COMMON NORMALS: normal respiratory effort and clear to auscultation bilaterally AUSCULTATION: clear to auscultation bilaterally Cardio: COMMON NORMALS: regular rate, regular rhythm and No murmurs present (Cardio) RATE: regular rate RHYTHM: regular rhythm GI: COMMON NORMALS: Normal to inspection, nondistended, normoactive bowel sounds present and non-tender Extremity: COMMON NORMALS: normal to inspection, full ROM and capillary refill normal GENERAL: Yes normal exam except as noted RIGHT UPPER EXTREMITY: Yes upper arm Right upper arm: Yes inspection (Mild medial redness), Yes palpation (Mild warmth medially) and Yes neurovascular exam (Intact, full range of motion, sensation intact) RIGHT LOWER EXTREMITY: Yes knee joint Right knee: Yes inspection, Yes palpation, Yes ROM, Yes neurovascular exam and Yes other (All intact and within normal limit) Neuro: COMMON NORMALS: patient oriented x3 and moves all extremities S ENSORIUM/ORIENTATION: Yes alert GAIT: Yes Normal gait present Skin: COMMON NORMALS: no rashes or lesions noted GENERAL SKIN EXAM: no rashes or lesions noted and no erythema Course 2 Vital Signs: Vital signs: Vital Signs Temperature 98.1 F 06/25/25 10:57 Pulse Rate 82 06/25/25 14:47 Blood Pressure 192/103 06/25/25 14:47 Pulse Oximetry 99 06/25/25 14:47 Oxygen Delivery Me thod Room Air 06/25/25 10:57 MDM - Extremity (Nontraumatic) Medical Decision Making Patient is a 59-year-old female that complains of right distal lower extremity pain and right upper extremity pain proximally. She did have some redness to her proximal right upper extremity, and therefore will cover for cellulitis. Ultrasound of lower extremity and upper extremity are negative for DVT. Her Homans was positive to her right lower extremity. There is no appreciable concern on rotation, range of motion, or inspection. Her sensation was intact. Discussed with patient and that she has been ruled out from this standpoint, and they will need to follow-up with primary care. Answered all 's questions the best my ability, although he is concerned by [employer] on multiple questions that were concerning with using the Internet. I have reassured him to the best my ability. Medical Records I reviewed the patient's medical records. Lab Data I reviewed the patient's lab results. 06/25/25 11:50 06/25/25 11:50 Radiology Impressions Chest X-Ray 06/25/25 10:55 IMPRESSION: 1. No acute findings. 2. Mild cardiomegaly. Venous Duplex 06/25/25 13:06 IMPRESSION: No evidence of deep vein thrombosis. Humerus X-Ray 06/25/25 13:08 IMPRESSION: Calcifications in the area of the rotator cuff insertion at the humeral head. Probable calcific tendinitis. Tibia/Fibula X-Ray 06/25/25 13:08 IMPRESSION: No acute findings. Laboratory Results WBC 7.63 10^3/uL (3.29-11.43) 06/25/25 11:50 RBC 5.28 10^6/uL (3.85-5.65) 06/25/25 11:50 Hgb 13.70 g/dL (11.27-16.99) 06/25/25 11:50 Hct 41.8 % (36-47) 06/25/25 11:50 MCV 79.2 fl (85-98) L 06/25/25 11:50 MCH 25.9 pg (27-33) L 06/25/25 11:50 MCHC 32.8 g/dL (30-55) 06/25/25 11:50 RDW 12.5 % (12.1-15.1) 06/25/25 11:50 Plt Count 241 10^3/cmm (157-399) 06/25/25 11:50 MPV 11.2 fL (7.4-10.4) H 06/25/25 11:50 Neut % (Auto) 70.1 % 06/25/25 11:50 Lymph % (Auto) 22.3 % 06/25/25 11:50 [place] % (Auto) 4.5 % 06/25/25 11:50 Eos % (Auto) 1.8 % 06/25/25 11:50 Baso % (Auto) 0.9 % 06/25/25 11:50 Neut # (Auto) 5.35 10^3/uL (1.8-7.7) 06/25/25 11:50 Lymph # (Auto) 1.7 10^3/uL (0.8-4.8) 06/25/25 11:50 [place] # (Auto) 0.3 10^3/uL (0.2-0.9) 06/25/25 11:50 Eos # (Auto) 0.1 10^3/uL (0.0-0.8) 06/25/25 11:50 Baso # (Auto) 0.1 10^3/uL (0.0-0.1) 06/25/25 11:50 Nucleated RBC % (auto) 0 % 06/25/25 11:50 Nucleated RBCs # 0.0 /100WBC 06/25/25 11:50 PT 11.60 SECONDS (12.1-14.9) L 06/25/25 11:50 INR 0.80 (0.8-1.2) 06/25/25 11:50 Sodium 137 mmol/L (136-145) 06/25/25 11:50 Potassium 4.5 mmol/L (3.5-5.1) 06/25/25 11:50 Chloride 100 mmol/L (98-107) 06/25/25 11:50 Carbon Dioxide 25 mmol/L (22-29) 06/25/25 11:50 Anion Gap 16.5 (5-19) 06/25/25 11:50 BUN 11 mg/dL (6-20) 06/25/25 11:50 Creatinine 0.4 mg/dL (0.5-0.9) L 06/25/25 11:50 GFR Calculation 163.9 mL/min (90-130) H 06/25/25 11:50 Glucose 204 mg/dL (65-115) H 06/25/25 11:50 Calculated Osmolality 289 mOsm/kg (285-295) 06/25/25 11:50 Calcium 9.6 mg/dL (8.5-10.5) 06/25/25 11:50 Total Bilirubin 0.3 mg/dL (0.15-1.2) 06/25/25 11:50 AST 21 U/L (0-32) 06/25/25 11:50 ALT 25 U/L (0-33) 06/25/25 11:50 Alkaline Phosphatase 113 U/L (35-105) H 06/25/25 11:50 Troponin T Baseline < 6 ng/L (0-10) 06/25/25 11:50 Troponin T 60 Minute < 6.0 ng/L (0-10) 06/25/25 13:05 Delta Troponin T 0 ABS# (0-10) 06/25/25 13:05 NT-Pro-B Natriuret Pep 59 pg/mL (0-125) 06/25/25 11:50 Total Protein 7.0 g/dL (6.6-8.7) 06/25/25 11:50 Albumin 4.6 g/dL (3.5-5.2) 06/25/25 11:50 Globulin 2.4 g/dL (1.3-4.6) 06/25/25 11:50 All radiology interpretation(s) finalized by discharge Discharge Plan Discharge Patient Disposition: Home Clinical Impression: Acute pain of right lower extremity, Right arm pain Condition: Stable Prescriptions: New cephalexin 500 mg capsule 500 mg PO QID 7 Days Qty: 28 0RF diclofenac sodium 75 mg tablet,delayed release (DR/EC) 75 mg PO BID PRN (Reason: pain) Qty: 30 0RF No Action gabapentin 100 mg capsule 200 mg PO BID 30 Days Qty: 120 5RF clopidogrel 75 mg tablet 75 mg PO DAILY 90 Days Qty: 90 3RF metformin 500 mg tablet 500 mg PO DAILY 30 Days Qty: 30 5RF (DME) blood-glucose meter [Blood Glucose Monitoring] Kit See Rx Instructions .Route Qty: 1 0RF Rx Instructions: Use to test blood sugar once daily (DME) lancets 33 gauge misc See Rx Instructions .Route Qty: 100 3RF Rx Instructions: Use to test blood sugar once daily (DME) Blood Glucose Test Strip See Rx Instructions .Route Qty: 50 3RF Rx Instructions: Use to test blood sugar once daily (DME) BD SafetyGlide Insulin Syringe 0.5 mL 30 gauge x 5/16 syringe See Rx Instructions .Route Qty: 100 0RF Rx Instructions: As directed aspirin 81 mg Tablet,Delayed Release (Dr/Ec) 81 mg PO DAILY 90 Days Qty: 90 3RF insulin glargine [Lantus U-100 Insulin] 100 unit/mL solution 10 - 15 unit SUBCUT QAM PRN (Reason: high blood sugar) Discharge Orders: Discharge ED (Routine); Ordered 06/25/25 Ordered By: Aiyana Vera Referrals: Teresita Huitron MD [Primary Care Provider, Family Practice] Discharge Diet: Usual diet Discharge Activity: Limit activity as instructed Patient Instructions: Muscle Spasm (ED), Patient Portal & Igor Instructions Activity Restrictions/Additional Instructions: - Ice, elevate, and Lazarus wrap can help with your pain in your right arm, and right lower extremity - At the pharmacy: Diclofenac. A powerful anti-inflammatory and pain medication. Cephalexin. A powerful antibiotic. This will cover for secondary infection/cellulitis. Take a probiotic or eat active culture yogurt to avoid infectious diarrhea - Follow-up with your doctor. Call tomorrow for an appointment. - Return to ED with fever greater than 100.5, worsening redness, weakness Thank you for choosing [facility] for your healthcare needs today. You have been screened and evaluated and felt safe for discharge. Health conditions do change or evolve sometimes and as such it is important that you follow up with your Primary Doctor to be re checked, 3-5 days is a general good time frame for follow up. You are always welcome to return to the ED for re assessment if your symptoms are worsening or you have new concerns Print Language: Uzbek Coding Level of Care Code ED Hospitalist for Gail Ware
--- NOTE | 2025-06-25 13:08 | XRR_ITS ---
PROCEDURE INFORMATION: Exam: XR Right Tibia and Fibula Exam date and time: 06/25/2025 1:08 PM Age: 59 years old Clinical indication: Pain; Lower leg; Right; Additional Info: RT LOWER EXT PAIN; NO KNOWN INJURY TECHNIQUE: Imaging protocol: Radiologic exam of the right tibia and fibula. Views: 2 views. COMPARISON: No relevant prior studies available. FINDINGS: Bones/joints: No fracture or dislocation. No blastic or lytic changes. Small enthesophytes at the superior patella and anterior tibial tuberosity. Soft tissues: No soft tissue swelling, air or FB. XR/XR tibia fibula RT 2V [id number] IMPRESSION: No acute findings.
--- NOTE | 2025-06-25 13:08 | XRR_ITS ---
PROCEDURE INFORMATION: Exam: XR Right Humerus Exam date and time: 06/25/2025 1:10 PM Age: 59 years old Clinical indication: Pain; Upper arm; Right; Additional Info: RT UPPER ARM PAIN; NO KNOWN INJURY TECHNIQUE: Imaging protocol: Radiologic exam of the right humerus. Views: 2 or more views. COMPARISON: 1. CR (CHEST, ) 06/25/2025 12:[address] angio chest [id number] 10/02/2024 12:15 PM FINDINGS: Bones/joints: No fracture or dislocation. No periosteal reaction. No blastic or lytic bone changes. Joint spaces are preserved. No arthritic changes. Calcifications in the area of the rotator cuff insertion at the humeral head. Visible ribs are normal. Lungs: Visible lung field is normal. Soft tissues: No identified soft tissue air, mass or foreign body. XR/[place] [id number] IMPRESSION: Calcifications in the area of the rotator cuff insertion at the humeral head. Probable calcific tendinitis.
[2025-06-25 13:59] VITALS: BP 172/93; PULSE 72; O2SAT 99
[2025-06-25] MEDS: orphenadrine 30 mg/mL Inj 2 mL 60 MG IM (14:39)
[2025-06-25 14:47] VITALS: BP 192/103; PULSE 82; O2SAT 99
== END 2025-06-25 14:54 | disposition home or self-care (01) ==
PROVIDERS: Emergency Medicine; Emergency Provider Physician Assistant; PCP Family Medicine
DX: M79.604 Pain in right leg (principal); M79.601 Pain in right arm; Z79.02 Long term (current) use of antithrombotics/antiplatelets; Z79.84 Long term (current) use of oral hypoglycemic drugs; Z79.82 Long term (current) use of aspirin; Z79.4 Long term (current) use of insulin; E11.9 Type 2 diabetes mellitus without complications; I10 Essential (primary) hypertension
CPT/HCPCS: 36415; 71045; 73060; 73590; 80053; 83880; 84484; 85025; 85610; 93005; 93971; 96372; 99285; J1885; J2360